=== PATIENT | male | born 1945 | race Caucasian/White ===

== ENCOUNTER → 2020-04-08 09:11 | Outpatient (BNVA) | payer MEDICARE, OTHER, SELFPAY | PROVIDERS: Family Provider Family Medicine; PCP Family Medicine; Visit Provider Family Medicine | DX: I10 Essential (primary) hypertension (principal); R35.1 Nocturia; H61.92 Disorder of left external ear, unspecified | CPT/HCPCS: 80053; 80061; 82044; 83721; 84153; 85025 ==

== ENCOUNTER → 2020-04-09 12:56 | Outpatient (BNVA) | payer MEDICARE, OTHER, SELFPAY | PROVIDERS: Family Provider Family Medicine; PCP Family Medicine; Visit Provider Family Medicine | DX: I10 Essential (primary) hypertension (principal); R35.1 Nocturia; H61.92 Disorder of left external ear, unspecified; K21.9 Gastro-esophageal reflux disease without esophagitis; R73.09 Other abnormal glucose | CPT/HCPCS: 83036 ==

== ENCOUNTER → 2020-06-03 15:48 | Outpatient (BNVA) | payer MEDICARE, OTHER, SELFPAY | PROVIDERS: Family Provider Family Medicine; PCP Family Medicine; Visit Provider Nurse Practitioner | DX: J02.9 Acute pharyngitis, unspecified (principal); J01.90 Acute sinusitis, unspecified | CPT/HCPCS: 87071; 87880 ==

== ENCOUNTER 2020-09-13 17:55 | Emergency (ER) | payer MEDICARE, OTHER, SELFPAY ==
[2020-09-13 17:57] VITALS: BP 190/93; PULSE 94; RESP 20; TEMP 36.7; O2SAT 97; BMI 40.8
--- NOTE | 2020-09-13 17:57 | XRR_ITS ---
PROCEDURE INFORMATION: Exam: XR Chest, 1 View Exam date and time: 09/13/2020 5:58 PM Age: 75 years old Clinical indication: Chest pain; Type not specified; Additional info: Cp TECHNIQUE: Imaging protocol: XR of the chest Views: 1 view. COMPARISON: CR Chest 1 [place] [id number] 04/27/2019 7:15 PM FINDINGS: Lungs: Unremarkable. No consolidation. Pleural space: Unremarkable. No pleural effusion. No pneumothorax. Heart/Mediastinum: Unremarkable. No cardiomegaly. Bones/joints: Unremarkable. XR/XR chest 1V portable [id number] IMPRESSION: No acute findings.
--- NOTE | 2020-09-13 17:57 | ECG_ITS ---
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: : 1945 Requested By: Misti Malin Order Number: [id number] Reading MD: DAVID FAYE Measurements Intervals [place] Rate: 100 P: 65 CO: 205 QRS: 21 QRSD: 100 T: 50 QT: 357 QTc: 460 Interpretive Statements SINUS TACHYCARDIA WITH OCCASIONAL VENTRICULAR PREMATURE COMPLEXES ABNORMAL RHYTHM ECG Compared to ECG 04/27/2019 22:22:53 Sinus rhythm no longer present Electronically Signed On 09-13-2020 20:13:37 JOURNALISTS AND OTHER WRITERS by DAVID FAYE [email or web address] medical [facility] shawWigix/store/NU/[id number] f
--- NOTE | 2020-09-13 18:16 | ED_ITS ---
HPI - Chest Pain General: Chief Complaint: Chest Pain Stated Complaint: chest pain/heart problems Time Seen by Provider: 09/13/20 17:59 History of Present Illness: HPI narrative: 75-year-old gentleman here with palpitations, and some chest discomfort. He notes that he woke up with this this morning. His chest discomfort is gone, but he notes that it still hard to breathe because his heart seems to be skipping beats. He has had this problem before. He has a history of aortic regurgitation but no history of coronary disease. He has not been ill, not running a fever, no cough, no increased swelling. MD complaint: chest discomfort Pertinent past history: other Onset (ago): hour(s) (12) Timing of current episode: episodic Prior episodes: Yes Onset: during rest Pain location: substernal Pain radiation: none Severity: moderate Quality: tightness and heaviness Relieving factors: nothing Exacerbating factors: nothing Associated symptoms: Reports dyspnea and palpitations; Deny abdominal pain, diaphoresis, fever(s), leg edema, nausea or vomiting Treatment prior to arrival: none Review of Systems Const: Denies: fever(s) or diaphoresis Eyes: Denies: change in vision ENMT: Denies: odynophagia, swelling of lips/tongue or sinus pain Card: Reports: palpitations Resp: Reports: dyspnea GI: Denies: abdominal pain, nausea or vomiting : Denies: difficulty urinating or hematuria Musc: Denies: neck pain or joint warmth Skin/Breast: Denies: rash or erythema Neuro: Denies: headache(s), dizziness or vertigo Psych: Denies: anxiety PFSH ED PFSH: Medical History (Updated 09/13/20 @ 19:48 by Pramod Landry DO) Benign essential hypertension GERD (gastroesophageal reflux disease) Grade I diastolic dysfunction Prediabetes Surgical History H/O hernia repair History of circumcision History of rhinoplasty Family History Other CAD (coronary artery disease) Hypertension Social History Smoking and tobacco status: never smoked Alcohol intake: never Physical Exam Const: GENERAL APPEARANCE: well developed ORIENTATION/CONSCIOUSNESS: Yes oriented to person, Yes oriented to place and Yes oriented to time HENMT: COMMON NORMALS: normocephalic, external ears normal and Normal external nose present HEAD & SCALP: normocephalic FACE & SINUS: normal facial exam NOSE: Normal external nose present and No nasal discharge present EXTERNAL EAR: Yes external ears normal Eye: COMMON NORMALS: Equal, round and reactive pupils present, EOMs intact bilaterally and conjunctivae normal EYELID: eyelids normal CONJUNCTIVA: Yes conjunctivae normal PUPIL: Yes Equal, round and reactive pupils present Neck/C-Spine: GENERAL: No tracheal deviation Chest: COMMONS NORMALS: normal inspection of the chest CHEST: No tenderness Resp: COMMON NORMALS: clear to auscultation bilaterally EFFORT & INSPECTION: No tachypneic, No respiratory distress, No retractions, No uses accessory muscles and No tracheal deviation AUSCULTATION: clear to auscultation bilaterally, no rhonchi, no wheezes and lung sounds not diminished Cardio: COMMON NORMALS: regular rate and regular rhythm RATE: regular rate RHYTHM: regular rhythm HEART SOUNDS: no murmurs PERIPHERAL PULSES: radial pulses present GI: INSPECTION: No abdominal distension AUSCULTATION: No Hyperactive bowel sounds present and No Hypoactive bowel sounds present PALPATION: No Guarding due to palpation present (GI) and No Rigid due to palpation PERCUSSION: no dullness to percussion and no tympanic to percussion Neuro: SENSORIUM/ORIENTATION: Yes oriented to person, Yes oriented to place and Yes oriented to time Psych: COMMON NORMALS: mental status grossly normal Skin: COMMON NORMALS: no rashes or lesions noted GENERAL SKIN EXAM: no rashes or lesions noted Course Vital Signs: Vital signs: Vital Signs Temperature 98.1 F 09/13/20 17:57 Pulse Rate 63 09/13/20 20:59 Respiratory Rate 16 09/13/20 20:59 Blood Pressure 150/76 09/13/20 20:59 Pulse Oximetry 97 09/13/20 20:59 MDM - Chest Pain MDM Narrative: Medical decision making narrative: There were some frequent PVCs on the monitor, likely symptomatic. He was hypertensive on arrival as well. Blood pressure much better now, 146/86. He was given 5 mg of metoprolol, with lowering of his rate into the mid 60s and very few PVCs presently. The patient notes he can breathe better. His EKG shows a sinus rhythm with a normal axis and no acute ST changes. There were a couple of PVCs present. His potassium is 3.3, magnesium is 1.5. These will be repleted, as there are potential cause of the PVCs. His other lab work is essentially benign. His troponin is negative with improvement in his symptoms he will be allowed home Lab Data: Labs: Lab Results 09/13/20 09/13/20 09/13/20 Range/Units 18:42 18:42 18:42 WBC 9.4 (4.0-10.0) 10^3/ uL RBC 4.54 (4.1-5.3) 10^6/u L Hgb 14.1 (11.7-16.6) g/dL Hct 43.2 (42.0-52.0) % MCV 95.2 H (80-94) fL MCH 31.1 (28.0-34.0) pg MCHC 32.6 (30.0-36.0) g/dL RDW 12.8 (12.1-15.1) % Plt Count 226 (130-400) 10^3/c mm MPV 10.1 (7.4-10.4) fL Neut % (Auto) 53.8 % Lymph % (Auto) 37.0 % [place] % (Auto) 7.4 % Eos % (Auto) 0.7 % Baso % (Auto) 0.7 % Neut # (Auto) 5.03 (1.8-7.7) 10^3/u L Lymph # (Auto) 3.5 (0.8-4.8) 10^3/u L [place] # (Auto) 0.7 (0.2-0.9) 10^3/u L Eos # (Auto) 0.1 (0.0-0.8) 10^3/u L Baso # (Auto) 0.1 (0.0-0.1) 10^3/u L Nucleated RBC % (a uto) 0 % Nucleated RBCs # 0.0 /100WBC Sodium 141 (136-145) mmol/L Potassium 3.3 L (3.5-5.1) mmol/L Chloride 105 (98-107) mmol/L Carbon Dioxide 25 (22-29) mmol/L Anion Gap 14.3 (5-19) BUN 15 (8-23) mg/dL Creatinine 0.8 (0.7-1.2) mg/dL GFR Calculation Not Reportable Glucose 114 (65-115) mg/dL Calculated Osmolal ity 294 (285-295) mOsm/k g Calcium 9.4 (8.5-10.5) mg/dL Magnesium 1.5 L (1.7-2.3) mg/dL Total Bilirubin 0.3 (0.15-1.2) mg/dL AST 26 (0-40) U/L ALT 38 (0-41) U/L Alkaline Phosphata se 62 (40-130) IU/L Troponin T Baselin e 11 (0-15) ng/L NT-Pro-B Natriuret Pep 136 H (0-125) pg/mL Total Protein 6.6 (6.6-8.7) g/dL Albumin 4.0 (3.5-5.2) g/dL Globulin 2.6 (1.3-4.6) g/dL Discharge Plan Discharge Patient Disposition: Home Clinical Impression: Hypokalemia, Hypomagnesemia Chest pain Qualifiers: Chest pain type: unspecified Qualified Code(s): R07.9 - Chest pain, unspecified Condition: Stable Prescriptions: No Action aspirin 325 mg tablet 325 mg PO DAILY RF: 0 chlorthalidone 50 mg tablet 100 mg PO DAILY Qty: 90 RF: 1 lisinopril 40 mg tablet 40 mg PO BID Qty: 180 RF: 1 atenolol 50 mg tablet 50 mg PO DAILY Qty: 90 RF: 1 potassium chloride 20 mEq tablet extended release 20 meq PO DAILY Qty: 90 RF: 1 pantoprazole [Protonix] 40 mg tablet,delayed release (DR/EC) 40 mg PO DAILY Qty: 90 RF: 1 Discharge Orders: Discharge ED (Routine); Ordered 09/13/20 Ordered By: Pramod Landry Referrals: Lorrie Amaya DO [Primary Care Provider] - 4-7 days Discharge Diet: Advance as tolerated Discharge Activity: Increase activity as tolerated Patient Instructions: Chest Pain (ED), Palpitations (ED), Hypokalemia (ED), Hypomagnesemia (ED) Activity Restrictions/Additional Instructions: Return to the emergency department for continued chest discomfort or palpitations, syncope or passing out, worsening trouble breathing, other concerning symptoms. You should have your blood work rechecked in a few days time to ensure those levels are staying appropriate. Coding Level of Care Code ED Slag Skimmer for Chg Fwd Exam Comprehensive
[2020-09-13 18:31] VITALS: BP 163/89; PULSE 81; RESP 17; O2SAT 95
[2020-09-13] MEDS: metoprolol tartrate 1 mg/1 mL SDV 5 mL 5 MG IV (18:41)
[2020-09-13 18:57] LABS: Basophils # 0.1 10^3/uL (0.0-0.1); Basophils % 0.7 %; Eosinophils # 0.1 10^3/uL (0.0-0.8); Eosinophils % 0.7 %; Hematocrit 43.2 % (42.0-52.0); Hemoglobin 14.1 g/dL (11.7-16.6); Lymphocytes # 3.5 10^3/uL (0.8-4.8); Mean Corpuscular HGB Conc 32.6 g/dL (30.0-36.0); Mean Corpuscular Hemoglobin 31.1 pg (28.0-34.0); Mean Corpuscular Volume 95.2 fL (80-94); Mean Platelet Volume 10.1 fL (7.4-10.4); Monocytes # 0.7 10^3/uL (0.2-0.9); Monocytes % 7.4 %; Neutrophils # 5.03 10^3/uL (1.8-7.7); Neutrophils % 53.8 %; Nucleated Red Blood Cells % 0 %; Platelet Count 226 10^3/cmm (130-400); Red Blood Count 4.54 10^6/uL (4.1-5.3); Red Cell Distribution Width 12.8 % (12.1-15.1); White Blood Count 9.4 10^3/uL (4.0-10.0)
[2020-09-13 19:10] VITALS: BP 151/76; PULSE 68; RESP 17; O2SAT 95
[2020-09-13 19:24] LABS: Troponin(5th) Baseline 11 ng/L (0-15)
[2020-09-13 19:33] LABS: Alanine Aminotransferase 38 U/L (0-41); Alkaline Phosphatase 62 IU/L (40-130); Anion Gap 14.3 (5-19); Aspartate Amino Transferase 26 U/L (0-40); Blood Urea Nitrogen 15 mg/dL (8-23); Calcium 9.4 mg/dL (8.5-10.5); Carbon Dioxide 25 mmol/L (22-29); Chloride 105 mmol/L (98-107); Globulin 2.6 g/dL (1.3-4.6); Glucose 114 mg/dL (65-115); Magnesium 1.5 mg/dL (1.7-2.3); NT Pro B Type Natriuretic Pept 136 pg/mL (0-125); Osmolality Calculated 294 mOsm/kg (285-295); Potassium 3.3 mmol/L (3.5-5.1); Sodium 141 mmol/L (136-145); Total Bilirubin 0.3 mg/dL (0.15-1.2); Total Protein 6.6 g/dL (6.6-8.7)
[2020-09-13] MEDS: magnesium sulfate premix 2 GM/50 ML PIGGYBACK IV (19:48)
[2020-09-13] MEDS: potassium chloride ER 20 mEq Tablet 40 MEQ PO (19:50)
[2020-09-13 19:51] VITALS: BP 157/80; PULSE 80; RESP 17; O2SAT 95
[2020-09-13 20:59] VITALS: BP 150/76; PULSE 63; RESP 16; O2SAT 97
== END 2020-09-13 20:59 | disposition home or self-care (01) ==
PROVIDERS: Emergency Medicine; Emergency Provider Emergency Medicine; PCP Family Medicine
DX: R07.9 Chest pain, unspecified (principal); E87.6 Hypokalemia; E83.42 Hypomagnesemia; Z79.82 Long term (current) use of aspirin
CPT/HCPCS: 12345; 71045; 80053; 83735; 83880; 84484; 85025; 93005; 96365; 96375; 99283; 99284; J3475; J3490

== ENCOUNTER → 2020-11-27 12:59 | Outpatient (BNVA) | payer MEDICARE, OTHER, SELFPAY | PROVIDERS: PCP Family Medicine; Visit Provider Family Medicine | DX: I10 Essential (primary) hypertension (principal); Z68.41 Body mass index [BMI] 40.0-44.9, adult | CPT/HCPCS: 80048 ==

== ENCOUNTER 2021-04-29 06:45 | Outpatient (CLI) | payer MEDICARE, OTHER, SELFPAY ==
--- NOTE | 2021-04-29 07:15 | USCV_ITS ---
Teddy aGyle Age: 75 Gender: M : 1945 Exam Date: 04/29/2021 07:40 Ordering Phys: Lorrie Amaya DO Technologist: Berto Burnham Exam Location: [facility] [place] Indication: diastolic dysfunction BP: 160 / 84 HR: 61 Rhythm: Sinus Technical Quality: Adequate MEASUREMENTS (Male / Female) Normal Values 2D ECHO LV Diastolic Diameter PLAX 3.2 cm 4.2 - 5.9 / 3.9 - 5.3 cm LV Systolic Diameter PLAX 2.1 cm IVS Diastolic Thickness 1.5 cm 0.6 - 1.0 / 0.6 - 0.9 cm IVS Systolic Thickness 1.7 cm LVPW Diastolic Thickness 2.1 cm 0.6 - 1.0 / 0.6 - 0.9 cm LVPW Systolic Thickness 2.6 cm LVOT Diameter 2.1 cm LV Ejection Fraction 2D Teich 64.0 % LV Ejection Fraction MOD 2C 57.3 % LV Ejection Fraction 2C AL 59.9 % LA Diameter 4.0 cm LA Width 3.9 cm LA Height 5.4 cm RA Width 3.0 cm RA Height 4.6 cm Aorta at Sinotubular Diameter 2.9 cm M-MODE LV Diastolic Diameter MM 4.1 cm 4.2 - 5.9 / 3.9 - 5.3 cm LV Systolic Diameter MM 2.9 cm LV Ejection Fraction MM Teich 57.3 % IVS Diastolic Thickness MM 2.0 cm 0.6 - 1.0 / 0.6 - 0.9 cm IVS Systolic Thickness MM 2.0 cm LVPW Diastolic Thickness MM 1.4 cm 0.6 - 1.0 / 0.6 - 0.9 cm LVPW Systolic Thickness MM 1.9 cm Aortic Annulus Diameter 2.9 cm LA Ao Ratio MM 1.6 MV E Point Septal Separation 0.9 cm DOPPLER AV Peak Velocity 128.0 cm/s LVOT Peak Velocity 129.0 cm/s AV Area Cont Eq vti 3.1 cm squared AV Area Cont Eq pk 3.6 cm squared MV Peak Velocity 601.0 cm/s MV Area PHT 3.6 cm squared Mitral E to A Ratio 1.1 MV E' Velocity 37.5 cm/s Mitral E to MV E' Ratio 7.9 Mitral E to LV E' Lateral Ratio 7.6 Mitral E to LV E' Septal Ratio 8.4 TR Peak Velocity 222.7 cm/s TR Peak Gradient 19.8 mmHg Right Atrial Pressure 3.0 mmHg Pulmonary Artery Systolic Pressu 22.8 mmHg RV Acceleration Time 0.1 s RV Ejection Time 0.3 s RV AcT/ET 0.4 FINDINGS Left Ventricle Normal left ventricular cavity size. Normal left ventricular systolic function. Left ventricular ejection fraction is estimated at 60 %. No regional wall motion abnormalities. Grade I/IV diastolic dysfunction (abnormal relaxation filling pattern), normal to mildly elevated filling pressures. Right Ventricle The right ventricle is normal in size and function. Right Atrium The right atrium is normal in size. Left Atrium The left atrium is normal in size. Mitral Valve Moderately thickened mitral valve. No mitral valve stenosis. Mild-moderate mitral valve regurgitation. Aortic Valve Aortic valve sclerosis without stenosis or regurgitation. Tricuspid Valve Structurally normal tricuspid valve without significant stenosis , no doppler analysis was performed across the tricuspid valve therefore cannot assess regurgitation. Pulmonic Valve Structurally normal pulmonic valve without significant stenosis. There is no pulmonic regurgitation. Pericardium Normal pericardium without effusion. Aorta Normal ascending aorta dimension. CONCLUSIONS 1-Normal left ventricular cavity size. Normal left ventricular systolic function. Left ventricular ejection fraction is estimated at 60 %. No regional wall motion abnormalities. Grade I/IV diastolic dysfunction (abnormal relaxation filling pattern), normal to mildly elevated filling pressures. 2-Moderately thickened mitral valve. No mitral valve stenosis. Mild-moderate mitral valve regurgitation. 3-There is no pericardial effusion. 4-Pulmonary artery systolic pressure is within normal limits. 5-Right atrial pressure is around 5 mm of mercury. 6-No significant change since the prior echocardiogram study of 09/20/2019. Génesis Marinelli MD (Electronically Signed) Final Date: 01 May 2021 15:32 S
== END 2021-04-29 06:46 | disposition home or self-care (01) ==
PROVIDERS: PCP Family Medicine; Visit Provider Family Medicine
DX: I51.9 Heart disease, unspecified (principal)
CPT/HCPCS: 93306

== ENCOUNTER → 2021-10-14 15:48 | Outpatient (BNVA) | payer MEDICARE, OTHER, SELFPAY | PROVIDERS: PCP Family Medicine; Visit Provider Family Medicine | DX: R73.9 Hyperglycemia, unspecified (principal); G62.9 Polyneuropathy, unspecified | CPT/HCPCS: 80053; 83036 ==

== ENCOUNTER 2021-10-17 00:06 | Emergency (ER) | payer MEDICARE, OTHER, SELFPAY ==
[2021-10-17 00:29] VITALS: BP 191/100; PULSE 70; RESP 18; TEMP 36.6; O2SAT 97; BMI 40.1
[2021-10-17 00:43] VITALS: PULSE 67; RESP 18; O2SAT 97
--- NOTE | 2021-10-17 00:44 | PC.NURSE ---
patient arrival with c/o heart rate every where 30-45 min after taking the first dose of gabapentin to help his legs rest while he is sleeping. denies swelling and hives. reports intermittent SOB. speech clear, sentences complete. heart monitor and SPO2 in place.
--- NOTE | 2021-10-17 00:45 | W.ED.ALLEREA ---
HPI - Allergic Reaction General: Chief complaint: Allergic Reaction Stated complaint: took new medication, possible reaction Time Seen by Provider: 10/17/21 00:43 History of Present Illness: HPI narrative: 76-year-old male patient comes in today for complaints of bradycardia and dizziness. Patient reports he had taken some gabapentin which he just picked up today and was taking it for some leg cramps at night. This was his first dose. An hour after he had taken the medication he felt really dizzy and his pulse rate was low in the upper 40s. Patient reports improvement of symptoms since arriving to the ER. Patient is alert and oriented. Patient denies any chest pain or difficulty breathing. Associated symptoms: Reports dizziness Review of Systems Card: Reports: palpitations Neuro: Reports: dizziness [facility] ED PFSH: Medical History Benign essential hypertension GERD (gastroesophageal reflux disease) Grade I diastolic dysfunction Hypertension Mitral valve regurgitation Prediabetes Surgical History H/O hernia repair History of circumcision History of rhinoplasty Family History Other CAD (coronary artery disease) Hypertension Social History Smoking and tobacco status: never smoked Alcohol intake: never History of recent travel: No Physical Exam Const: GENERAL APPEARANCE: cooperative and well kempt HENMT: COMMON NORMALS: atraumatic HEAD & SCALP: atraumatic Eye: COMMON NORMALS: Equal, round and reactive pupils present and EOMs intact bilaterally PUPIL: Yes Equal, round and reactive pupils present Neck/C-Spine: COMMON NORMALS: full ROM Resp: COMMON NORMALS: normal respiratory effort and clear to auscultation bilaterally AUSCULTATION: clear to auscultation bilaterally Cardio: COMMON NORMALS: regular rate RATE: regular rate RHYTHM: abnormal rhythm with ectopic beats Extremity: COMMON NORMALS: no clubbing, cyanosis or edema and no pedal edema Psych: APPEARANCE: Yes well kempt Skin: COMMON NORMALS: no rashes or lesions noted GENERAL SKIN EXAM: no rashes or lesions noted Course Vital Signs: Vital signs: Vital Signs Temperature 97.9 F 10/17/21 00:29 Pulse Rate 67 10/17/21 00:43 Respiratory Rate 18 10/17/21 00:43 Blood Pressure 191/100 10/17/21 00:29 Pulse Oximetry 97 10/17/21 00:43 MDM - Allergic Reaction MDM Narrative: Medical decision making narrative: 76-year-old male patient took a gabapentin 300 mg capsule at about 10:00 this evening. 11:00 he felt his heart rate was running slow and he felt really dizzy. Patient had never taken medication before. Patient feels better since arriving to the ER. On exam patient does have an occasional ectopic beat on auscultation. Review of the EKG showed a sinus rhythm with occasional PACs and PVCs which is similar to prior exam done in September 2020. Patient's rate is 72 bpm. Lungs are clear to auscultation. No edema is noted in the lower extremities. Patient is alert and oriented. Blood pressure on arrival was 190 systolic but in the room it repeated at 120/77. Patient denies any headache or other weakness. Differential diagnosis includes but not limited to electrolyte imbalance, PVCs, adverse drug effect. The symptoms that patient does report are adverse effects of gabapentin. I recommended patient stop the gabapentin until he can follow-up with his primary care provider. Patient can try Tylenol for pain. Patient was recommended to monitor for chest pain or other new symptoms that can be a sign of other illness. I reviewed patient's labs from yesterday and they showed no abnormality in his potassium or sodium. Patient reported understanding of recommendations of treatment and follow-up. Discharge Plan Discharge Patient Disposition: Home Clinical Impression: Adverse reaction to drug Qualifiers: Encounter type: initial encounter Qualified Code(s): T50.905A - Adverse effect of unspecified drugs, medicaments and biological substances, initial encounter Condition: Stable Prescriptions: No Action valsartan-hydrochlorothiazide 320-25 mg tablet 1 tab PO DAILY Qty: 90 RF: 3 magnesium oxide 400 mg magnesium capsule 400 mg PO DAILY Qty: 90 RF: 3 potassium chloride 20 mEq tablet extended release 20 meq PO DAILY Qty: 90 RF: 3 citalopram [Celexa] 10 mg tablet 10 mg PO DAILY Qty: 30 RF: 0 aspirin 325 mg tablet 325 mg PO DAILY RF: 0 furosemide 40 mg tablet 40 mg PO BID Qty: 90 RF: 3 tadalafil [Cialis] 10 mg tablet 10 mg PO DAILY PRN (Reason: sexual activity) Qty: 10 RF: 0 Bystolic 10 mg tablet See Rx Instructions .ROUTE .COMPLEX Qty: 90 RF: 0 pantoprazole 40 mg tablet,delayed release (DR/EC) See Rx Instructions .ROUTE .COMPLEX Qty: 90 RF: 0 gabapentin 300 mg capsule 300 mg PO .qhs Qty: 30 RF: 0 Discharge Orders: Discharge ED (Routine); Ordered 10/17/21 Ordered By: Spencer Greer Referrals: Lorrie Amaya DO [Primary Care Provider] - Discharge Diet: Usual diet Discharge Activity: Increase activity as tolerated Patient Instructions: Adverse Drug Reaction (ED) Activity Restrictions/Additional Instructions: Home and rest. Monitor for chest pain. Follow-up with primary care as needed. Return to the ER for new concerns. Coding Level of Care Code ED Insurance Writer for Pee Mendez
--- NOTE | 2021-10-17 00:50 | ECG_ITS ---
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: : 1945 Requested By: Spencer Washington Order Number: [id number] Reading MD: DAVID FAYE Measurements Intervals [place] Rate: 72 P: 46 [place]: 178 QRS: 19 QRSD: 98 T: 55 QT: 385 QTc: 424 Interpretive Statements SINUS RHYTHM WITH OCCASIONAL VENTRICULAR PREMATURE COMPLEXES WITH FREQUENT SUPRAVENTRICULAR PREMATURE COMPLEXES ABNORMAL RHYTHM ECG Compared to ECG 09/13/2020 18:03:24 Sinus tachycardia no longer present Electronically Signed On 10-17-2021 17:47:34 CLIENT PORTFOLIO MANAGER by DAVID FAYE [id number]
[2021-10-17 01:03] VITALS: PULSE 77; RESP 17; O2SAT 99
== END 2021-10-17 01:04 | disposition home or self-care (01) ==
PROVIDERS: Emergency Provider Nurse Practitioner Family; PCP Family Medicine
DX: T88.7XXA Unspecified adverse effect of drug or medicament, initial encounter (principal); T42.6X5A Adverse effect of other antiepileptic and sedative-hypnotic drugs, initial encounter; Z79.82 Long term (current) use of aspirin; I10 Essential (primary) hypertension
CPT/HCPCS: 93005; 99283

== ENCOUNTER → 2022-04-20 13:54 | Outpatient (BNVA) | payer MEDICARE, OTHER, SELFPAY | PROVIDERS: PCP Family Medicine; Visit Provider Nurse Practitioner Family | DX: I11.9 Hypertensive heart disease without heart failure (principal); I25.10 Atherosclerotic heart disease of native coronary artery without angina pectoris | CPT/HCPCS: 99213; 99214 ==

== ENCOUNTER 2022-09-28 14:16 | Outpatient (CLI) | payer MEDICARE, OTHER, SELFPAY ==
--- NOTE | 2022-09-28 14:30 | USCV_ITS ---
Teddy Gayle Age: 77 Gender: M : 1945 Exam Date: 09/28/2022 14:27 Ordering Phys: Lorrie Amaya DO Technologist: Nata Coleman Exam Location: [facility] [place] Indication: mvr BP: 160 / 85 HR: 67 Rhythm: Sinus Technical Quality: Very technically difficult study MEASUREMENTS (Male / Female) Normal Values 2D ECHO LV Diastolic Diameter PLAX 5.2 cm 4.2 - 5.9 / 3.9 - 5.3 cm LV Systolic Diameter PLAX 3.9 cm IVS Diastolic Thickness 1.2 cm 0.6 - 1.0 / 0.6 - 0.9 cm IVS Systolic Thickness 1.6 cm LVPW Diastolic Thickness 1.3 cm 0.6 - 1.0 / 0.6 - 0.9 cm LVPW Systolic Thickness 1.7 cm LVOT Diameter 2.1 cm LV Ejection Fraction 2D Teich 47.2 % LV Ejection Fraction MOD 2C 55.4 % LV Ejection Fraction 2C AL 54.8 % LA Diameter 4.4 cm LA Width 3.0 cm LA Height 5.4 cm RA Width 4.1 cm RA Height 4.0 cm Aorta at Sinotubular Diameter 3.0 cm IVC Diameter 1.6 cm M-MODE Aortic Annulus Diameter 3.7 cm LA Ao Ratio MM 1.3 MV E Point Septal Separation 1.1 cm DOPPLER AV Peak Velocity 119.0 cm/s LVOT Peak Velocity 84.0 cm/s AV Area Cont Eq vti 2.6 cm squared AV Area Cont Eq pk 2.4 cm squared MV Area PHT 2.1 cm squared Mitral E to A Ratio 0.6 MV E' Velocity 27.0 cm/s Mitral E to MV E' Ratio 9.6 Mitral E to LV E' Lateral Ratio 9.4 Mitral E to LV E' Septal Ratio 10.0 TR Peak Velocity 219.1 cm/s TR Peak Gradient 19.2 mmHg TR Mean Velocity 210.5 cm/s TR Mean Gradient 19.0 mmHg TR Velocity Time Integral 78.9 cm TV Peak E Velocity 49.0 cm/s Right Atrial Pressure 3.0 mmHg Pulmonary Artery Systolic Pressu 22.2 mmHg RV Acceleration Time 0.2 s RV Ejection Time 0.4 s RV AcT/ET 0.4 FINDINGS Left Ventricle Normal left ventricular size, systolic function and wall thickness, with no diagnostic regional wall motion abnormalities. Left ventricular ejection fraction is estimated at 55-60 %. Grade I diastolic dysfunction (abnormal relaxation filling pattern), normal to mildly elevated filling pressures. Right Ventricle Normal right ventricular size and systolic function. RVSP could not be calculated due to incomplete tricuspid regurgitation velocity profile. Right Atrium Normal right atrial size. Left Atrium Normal left atrial size. Mitral Valve Structurally normal mitral valve. No mitral valve stenosis. No mitral valve regurgitation. Aortic Valve Structurally normal trileaflet aortic valve. No aortic valve stenosis. No aortic valve regurgitation. Tricuspid Valve Structurally normal tricuspid valve. No tricuspid valve stenosis. Trace tricuspid valve regurgitation. Pulmonic Valve Pulmonic valve not well visualized. Pericardium No pericardial effusion. Aorta Normal size aortic root and proximal ascending aorta. IVC Normal sized inferior vena cava. CONCLUSIONS 1. Normal left ventricular size, systolic function and wall thickness, with no diagnostic regional wall motion abnormalities. Left ventricular ejection fraction is estimated at 55-60 %. Grade I diastolic dysfunction (abnormal relaxation filling pattern), normal to mildly elevated filling pressures. 2. Normal right ventricular size and systolic function. 3. No significant valvular abnormality. 4. No prior similar studies to compare. Shelby Marte MD (Electronically Signed) Final Date: 01 October 2022 15:57 S
== END 2022-09-28 14:17 | disposition home or self-care (01) ==
LOC: RAD 14:17
PROVIDERS: PCP Family Medicine; Visit Provider Family Medicine
DX: I34.0 Nonrheumatic mitral (valve) insufficiency (principal)
CPT/HCPCS: 93306

== ENCOUNTER → 2022-11-15 12:53 | Outpatient (BNVA) | payer MEDICARE, OTHER, SELFPAY | PROVIDERS: PCP Family Medicine; Visit Provider Internal Medicine Cardiovascular Disease | DX: I34.0 Nonrheumatic mitral (valve) insufficiency (principal); E78.1 Pure hyperglyceridemia; R73.03 Prediabetes; I11.9 Hypertensive heart disease without heart failure; E66.9 Obesity, unspecified; Z68.41 Body mass index [BMI] 40.0-44.9, adult | CPT/HCPCS: 99213 ==

== ENCOUNTER → 2023-06-13 13:54 | Outpatient (BNVA) | payer MEDICARE, OTHER, SELFPAY | PROVIDERS: PCP Family Medicine; Visit Provider Internal Medicine Cardiovascular Disease | DX: I11.9 Hypertensive heart disease without heart failure (principal) | CPT/HCPCS: 99214 ==

== ENCOUNTER → 2023-07-17 11:11 | Outpatient (BNVA) | payer MEDICARE, OTHER, SELFPAY | PROVIDERS: PCP Family Medicine; Visit Provider Nurse Practitioner Family | DX: L57.0 Actinic keratosis (principal); Z85.828 Personal history of other malignant neoplasm of skin; L82.1 Other seborrheic keratosis; D22.5 Melanocytic nevi of trunk; L57.8 Other skin changes due to chronic exposure to nonionizing radiation; L81.4 Other melanin hyperpigmentation | CPT/HCPCS: 17000; 99213 ==

== ENCOUNTER → 2023-08-07 13:36 | Outpatient (BNVA) | payer MEDICARE, OTHER, SELFPAY | PROVIDERS: PCP Family Medicine; Visit Provider Family Medicine | DX: I10 Essential (primary) hypertension (principal); R73.03 Prediabetes; R35.1 Nocturia; Z23 Encounter for immunization | CPT/HCPCS: 80053; 80061; 82043; 83036; 83721; 84153; 85025 ==

== ENCOUNTER → 2023-09-12 13:01 | Outpatient (BNVA) | payer MEDICARE, OTHER, SELFPAY | PROVIDERS: PCP Family Medicine; Visit Provider Family Medicine | DX: E87.6 Hypokalemia (principal); E78.1 Pure hyperglyceridemia | CPT/HCPCS: 80048 ==

== ENCOUNTER → 2023-12-14 11:51 | Outpatient (BNVA) | payer MEDICARE, OTHER, SELFPAY | PROVIDERS: PCP Family Medicine; Visit Provider Family Medicine | DX: E11.9 Type 2 diabetes mellitus without complications (principal) | CPT/HCPCS: 80053; 83036 ==

== ENCOUNTER 2023-12-22 09:22 | Emergency (ER) | payer MEDICARE, OTHER, SELFPAY ==
[2023-12-22 10:23] VITALS: BP 130/78; PULSE 96; RESP 18; TEMP 36.8; O2SAT 96; BMI 39.0
[2023-12-22 11:05] LABS: Basophils # 0.1 10^3/uL (0.0-0.1); Basophils % 0.6 %; Eosinophils # 0.1 10^3/uL (0.0-0.8); Lymphocytes # 2.6 10^3/uL (0.8-4.8); Lymphocytes % 29.4 %; Mean Corpuscular HGB Conc 33.5 g/dL (30-55); Mean Corpuscular Hemoglobin 32.7 pg (27-33); Mean Corpuscular Volume 97.5 fl (82-101); Mean Platelet Volume 9.6 fL (7.4-10.4); Monocytes # 0.7 10^3/uL (0.2-0.9); Monocytes % 8.4 %; Neutrophils # 5.28 10^3/uL (1.8-7.7); Neutrophils % 60.1 %; Nucleated Red Blood Cells % 0 %; Platelet Count 224 10^3/cmm (157-399); Red Blood Count 4.41 10^6/uL (3.85-5.65); Red Cell Distribution Width 13.2 % (12.1-15.1); White Blood Count 8.78 10^3/uL (3.29-11.43)
[2023-12-22 11:28] LABS: Alanine Aminotransferase 69 U/L (0-41); Alkaline Phosphatase 56 U/L (40-130); Anion Gap 14.6 (5-19); Aspartate Amino Transferase 44 U/L (0-40); Blood Urea Nitrogen 19 mg/dL (8-23); Calcium 7.6 mg/dL (8.5-10.5); Carbon Dioxide 20 mmol/L (22-29); Chloride 106 mmol/L (98-107); Creatinine Clr Calc Pharmacy 69.0006; Globulin 3.6 g/dL (1.3-4.6); Glucose 135 mg/dL (65-115); Lipase 68 U/L (13-60); Osmolality Calculated 288 mOsm/kg (285-295); Potassium 3.6 mmol/L (3.5-5.1); Sodium 137 mmol/L (136-145); Total Bilirubin 0.5 mg/dL (0.15-1.2); Total Protein 7.6 g/dL (6.6-8.7)
[2023-12-22 11:38] LABS: Urine Appearance Clear (CLEAR); Urine Color Yellow (Yellow); pH Urine 5 (5-7)
[2023-12-22 11:39] LABS: Add Urine Microscopic? YES; Bilirubin Urine Neg (Negative); Blood Urine Neg (Negative); Glucose Urine UA Norm (Normal); Ketones Urine 1+ (Negative); Leukocyte Esterase Urine Negative (Negative); Nitrate Urine Negative (Negative); Protein Urine Trace (Negative); Urobilinogen Urine Neg (Negative)
[2023-12-22 11:40] LABS: Bacteria Urine 1+ /hpf; Mucus Urine 1+ /hpf; RBC Urine RARE /hpf (0-2); Squamous Epithelial Cell Urine 0-4 /hpf (0-5); WBC Urine 0-4 /hpf (0-5)
[2023-12-22 11:41] LABS: Add Urine Culture? No; Hyaline Casts Urine 40-55 /lpf
[2023-12-22 11:41] LABS: Magnesium 1.8 mg/dL (1.7-2.3)
[2023-12-22] MEDS: ondansetron 2 mg/ML SDV 2 mL 4 MG IVP (12:00)
[2023-12-22] MEDS: sodium chloride 0.9% 1,000 ML 999 ML IV (12:00)
--- NOTE | 2023-12-22 12:50 | W.ED.NAVMDI ---
HPI - Nausea/Vomiting/Diarrhea General: Chief complaint: Nausea/Vomiting/Diarrhea Stated complaint: N/V/D , fever Time Seen by Provider: 12/22/23 11:03 History of Present Illness: Patient presents to the ER with complaints of upper respiratory/cold/sinus infection for about the last 3 to 4 days. Patient says gotten worse with pain and pressure over his maxillary sinuses to the point that is draining and he is having nausea vomiting and diarrhea. Patient did take an nausea pill that he had from a previous prescription and it did seem to help. Patient denies any fever or chills, coughs etc. Patient was given Zofran and a liter normal saline here in ER and already says he is feeling better. Review of Systems General: Reports: 10 or more systems reviewed and unremarkable except in HPI and below PFSH ED PFSH: Medical History Obesity Mitral valve regurgitation Hypertension Benign essential hypertension Prediabetes GERD (gastroesophageal reflux disease) Grade I diastolic dysfunction Surgical History S/P coronary angiogram H/O hernia repair History of rhinoplasty History of circumcision Family History Other CAD (coronary artery disease) Hypertension Social History Smoking and tobacco/nicotine status: never used tobacco/nicotine Alcohol intake: never Substance/Drug Use: never Physical Exam Const: COMMON NORMALS: no acute distress, average body habitus, patient oriented x3, no limitations, healthy appearing, alert and well nourished HENMT: COMMON NORMALS: normocephalic, atraumatic, hearing grossly normal bilaterally, Normal external nose present, moist oral mucous membranes and oropharynx normal HEAD & SCALP: normocephalic and atraumatic FACE & SINUS: sinus tenderness (Tender to palpation over maxillary sinuses bilaterally) NOSE: Normal external nose present Eye: COMMON NORMALS: Equal, round and reactive pupils present, EOMs intact bilaterally, conjunctivae normal and no scleral icterus CONJUNCTIVA: Yes conjunctivae normal PUPIL: Yes Equal, round and reactive pupils present Neck/C-Spine: COMMON NORMALS: full ROM, no lymphadenopathy, supple, no meningeal signs and no JVD Chest: COMMONS NORMALS: normal inspection of the chest and normal palpation of entire chest wall Resp: COMMON NORMALS: normal respiratory effort, No retractions, No use of accessory muscles and clear to auscultation bilaterally AUSCULTATION: clear to auscultation bilaterally Cardio: COMMON NORMALS: no JVD, regular rate, regular rhythm, S1 normal heart sound present, S2 normal heart sound present, No gallops present (Cardio), No clicks present (Cardio), No murmurs present (Cardio) and No rub (Cardio) RATE: regular rate RHYTHM: regular rhythm HEART SOUNDS: S1 normal heart sound present and S2 normal heart sound present GI: COMMON NORMALS: Normal to inspection, nondistended, normoactive bowel sounds present, Soft to palpation, non-tender, No hepatosplenomegaly present and no masses PALPATION: Yes Soft to palpation and Yes No hepatosplenomegaly present Neuro: COMMON NORMALS: patient oriented x3 SENSORIUM/ORIENTATION: Yes alert MENINGEAL SIGNS: Yes no meningeal signs Course Vital Signs: Vital signs: Vital Signs Temperature 98.2 F 12/22/23 13:58 Pulse Rate 88 12/22/23 13:58 Respiratory Rate 16 12/22/23 13:58 Blood Pressure 135/80 12/22/23 13:58 Pulse Oximetry 98 12/22/23 13:58 Oxygen Delivery Me thod Room Air 12/22/23 10:23 MDM - Nausea/Vomiting/Diarrhea Medical Decision Making Patient had lab work that included CBC CMP magnesium and urinalysis, all of which was essentially benign. Physical exam showed probable maxillary sinusitis. Patient improved with 4 mg Zofran and 1 L normal saline. Patient be discharged on antibiotics and Zofran. Lab Data 12/22/23 10:59 12/22/23 10:59 Laboratory Results WBC 8.78 10^3/uL (3.29-11.43) 12/22/23 10:59 RBC 4.41 10^6/uL (3.85-5.65) 12/22/23 10:59 Hgb 14.40 g/dL (11.27-16.99) 12/22/23 10:59 Hct 43.0 % (37-53) 12/22/23 10:59 MCV 97.5 fl (82-101) 12/22/23 10:59 MCH 32.7 pg (27-33) 12/22/23 10:59 MCHC 33.5 g/dL (30-55) 12/22/23 10:59 RDW 13.2 % (12.1-15.1) 12/22/23 10:59 Plt Count 224 10^3/cmm (157-399) 12/22/23 10:59 MPV 9.6 fL (7.4-10.4) 12/22/23 10:59 Neut % (Auto) 60.1 % 12/22/23 10:59 Lymph % (Auto) 29.4 % 12/22/23 10:59 [place] % (Auto) 8.4 % 12/22/23 10:59 Eos % (Auto) 1.0 % 12/22/23 10:59 Baso % (Auto) 0.6 % 12/22/23 10:59 Neut # (Auto) 5.28 10^3/uL (1.8-7.7) 12/22/23 10:59 Lymph # (Auto) 2.6 10^3/uL (0.8-4.8) 12/22/23 10:59 [place] # (Auto) 0.7 10^3/uL (0.2-0.9) 12/22/23 10:59 Eos # (Auto) 0.1 10^3/uL (0.0-0.8) 12/22/23 10:59 Baso # (Auto) 0.1 10^3/uL (0.0-0.1) 12/22/23 10:59 Nucleated RBC % (auto) 0 % 12/22/23 10:59 Nucleated RBCs # 0.0 /100WBC 12/22/23 10:59 Sodium 137 mmol/L (136-145) 12/22/23 10:59 Potassium 3.6 mmol/L (3.5-5.1) 12/22/23 10:59 Chloride 106 mmol/L (98-107) 12/22/23 10:59 Carbon Dioxide 20 mmol/L (22-29) L 12/22/23 10:59 Anion Gap 14.6 (5-19) 12/22/23 10:59 BUN 19 mg/dL (8-23) 12/22/23 10:59 Creatinine 1.2 mg/dL (0.7-1.2) 12/22/23 10:59 GFR Calculation Not Reportable 12/22/23 10:59 Glucose 135 mg/dL (65-115) H 12/22/23 10:59 Calculated Osmolality 288 mOsm/kg (285-295) 12/22/23 10:59 Calcium 7.6 mg/dL (8.5-10.5) L 12/22/23 10:59 Magnesium 1.8 mg/dL (1.7-2.3) 12/22/23 10:59 Total Bilirubin 0.5 mg/dL (0.15-1.2) 12/22/23 10:59 AST 44 U/L (0-40) H 12/22/23 10:59 ALT 69 U/L (0-41) H 12/22/23 10:59 Alkaline Phosphatase 56 U/L (40-130) 12/22/23 10:59 Total Protein 7.6 g/dL (6.6-8.7) 12/22/23 10:59 Albumin 4.0 g/dL (3.5-5.2) 12/22/23 10:59 Globulin 3.6 g/dL (1.3-4.6) 12/22/23 10:59 Lipase 68 U/L (13-60) H 12/22/23 10:59 Urine Color Yellow (Yellow) 12/22/23 11:26 Urine Appearance Clear (CLEAR) 12/22/23 11:26 Urine pH 5 (5-7) 12/22/23 11:26 Ur Specific [place] 1.020 (1.005-1.030) 12/22/23 11:26 Urine Protein Trace (Negative) 12/22/23 11:26 Urine Glucose (UA) Norm (Normal) 12/22/23 11:26 Urine Ketones 1+ (Negative) H 12/22/23 11:26 Urine Blood Neg (Negative) 12/22/23 11:26 Urine Nitrate Negative (Negative) 12/22/23 11:26 Urine Bilirubin Neg (Negative) 12/22/23 11:26 Urine Urobilinogen Neg mg/dL (Negative) 12/22/23 11:26 Ur Leukocyte Esterase Negative (Negative) 12/22/23 11:26 Urine RBC Rare /hpf (0-2) 12/22/23 11:26 Urine WBC 0-4 /hpf (0-5) H 12/22/23 11:26 Ur Squamous Epith Cells 0-4 /hpf (0-5) H 12/22/23 11:26 Amorphous Sediment Not Reportable 12/22/23 11:26 Urine Bacteria 1+ /hpf (NONE) H 12/22/23 11:26 Hyaline Casts 40-55 /lpf H 12/22/23 11:26 Urine Mucus 1+ /hpf 12/22/23 11:26 All radiology interpretation(s) finalized by discharge Discharge Plan Discharge Patient Disposition: Home Clinical Impression: Gastroenteritis Acute maxillary sinusitis Qualifiers: Recurrence: non-recurrent Qualified Code(s): J01.00 - Acute maxillary sinusitis, unspecified Condition: Stable Prescriptions: New amoxicillin-pot clavulanate 875-125 mg tablet 1 tab PO Q12H Qty: 20 0RF ondansetron HCl 4 mg tablet 4 mg PO Q8H PRN (Reason: nausea and vomiting) Qty: 14 0RF No Action aspirin 325 mg tablet 325 mg PO DAILY lisinopril-hydrochlorothiazide 20-25 mg tablet 1 tab PO BID Qty: 180 3RF nebivolol 20 mg tablet 40 mg PO DAILY Qty: 180 1RF magnesium oxide 400 mg magnesium capsule 400 mg PO DAILY Qty: 90 3RF furosemide 40 mg tablet 40 mg PO BID Qty: 180 1RF pantoprazole 40 mg tablet,delayed release (DR/EC) 40 mg PO DAILY Qty: 90 1RF tadalafil [Cialis] 10 mg tablet 10 mg PO DAILY PRN (Reason: sexual activity) Qty: 15 1RF Rx Instructions: admin appr 30min before sexual activity; do not use more than 1 dose per 24hrs 340 B potassium chloride 10 mEq tablet,ER particles/crystals See Rx Instructions .ROUTE .COMPLEX Qty: 90 3RF Dose Instruction: TAKE 1 TABLET BY MOUTH ONCE DAILY WITH 20MEQ FOR A TOTAL DOSE OF 30MEQ Rx Instructions: TAKE 1 TABLET BY MOUTH ONCE DAILY WITH 20MEQ FOR A TOTAL DOSE OF 30MEQ potassium chloride 20 mEq tablet extended release 20 meq PO DAILY Qty: 90 3RF vitamin B complex Tablet 1 tab PO DAILY CoQ-10 30 mg Capsule 30 mg PO DAILY Discharge Orders: Discharge ED (Routine); Ordered 12/22/23 Ordered By: Gustavo Ambrose Referrals: Lorrie Amaya DO [Primary Care Provider] - 1 week Patient Instructions: Gastroenteritis (ED), Sinusitis - Acute Activity Restrictions/Additional Instructions: Please finish all antibiotics and take nausea medicine as needed as directed. Please follow-up with your family practitioner within next 7 to 10 days for further evaluation and treatment. Coding Level of Care Code ED Video Game Technician for Pee Mendez
--- NOTE | 2023-12-22 13:18 | PC.NURSE ---
discharged delayed due to waiting for IV fluids to finish.
[2023-12-22 13:58] VITALS: BP 135/80; PULSE 88; RESP 16; TEMP 36.8; O2SAT 98
== END 2023-12-22 13:59 | disposition home or self-care (01) ==
PROVIDERS: Physician Assistant; Emergency Provider Emergency Medicine; PCP Family Medicine
DX: K52.9 Noninfective gastroenteritis and colitis, unspecified (principal); J01.00 Acute maxillary sinusitis, unspecified; Z79.82 Long term (current) use of aspirin; I10 Essential (primary) hypertension
CPT/HCPCS: 36415; 80053; 81001; 83690; 83735; 85025; 96361; 96374; 99284; J2405; J7030

== ENCOUNTER → 2023-12-28 09:01 | Outpatient (BNVA) | payer MEDICARE, OTHER, SELFPAY | PROVIDERS: PCP Family Medicine; Visit Provider Nurse Practitioner Family | DX: I25.10 Atherosclerotic heart disease of native coronary artery without angina pectoris (principal); I11.9 Hypertensive heart disease without heart failure | CPT/HCPCS: 99214 ==

== ENCOUNTER → 2024-01-15 10:55 | Outpatient (BNVA) | payer MEDICARE, OTHER, SELFPAY | PROVIDERS: PCP Family Medicine; Visit Provider Nurse Practitioner Family | DX: L57.0 Actinic keratosis (principal); L82.1 Other seborrheic keratosis; D22.5 Melanocytic nevi of trunk; L81.4 Other melanin hyperpigmentation; L57.8 Other skin changes due to chronic exposure to nonionizing radiation; Z85.828 Personal history of other malignant neoplasm of skin | CPT/HCPCS: 17000; 99213 ==

== ENCOUNTER → 2024-06-18 08:15 | Outpatient (BNVA) | payer MEDICARE, OTHER, SELFPAY | PROVIDERS: PCP Family Medicine | DX: E11.9 Type 2 diabetes mellitus without complications (principal) | CPT/HCPCS: 80053; 80061; 83036; 83721; 85025 ==

== ENCOUNTER → 2024-07-01 14:37 | Outpatient (BNVA) | payer MEDICARE, OTHER, SELFPAY | PROVIDERS: PCP Family Medicine; Visit Provider Internal Medicine | DX: I10 Essential (primary) hypertension (principal); I34.0 Nonrheumatic mitral (valve) insufficiency; E78.1 Pure hyperglyceridemia; R73.03 Prediabetes; I51.9 Heart disease, unspecified; E66.9 Obesity, unspecified; R07.9 Chest pain, unspecified; Z68.39 Body mass index [BMI] 39.0-39.9, adult | CPT/HCPCS: 99214 ==

== ENCOUNTER → 2024-07-17 08:19 | Outpatient (BNVA) | payer MEDICARE, OTHER, SELFPAY | PROVIDERS: PCP Family Medicine; Visit Provider Nurse Practitioner Family | DX: L82.1 Other seborrheic keratosis (principal); D22.5 Melanocytic nevi of trunk; L57.8 Other skin changes due to chronic exposure to nonionizing radiation; L81.4 Other melanin hyperpigmentation; L57.0 Actinic keratosis; Z85.828 Personal history of other malignant neoplasm of skin; D48.5 Neoplasm of uncertain behavior of skin | CPT/HCPCS: 11102; 17000; 99213 ==

== ENCOUNTER 2024-07-29 08:15 | Outpatient (CLI) | payer MEDICARE, OTHER, SELFPAY ==
[2024-07-29 09:06] VITALS: BMI 38.7
--- NOTE | 2024-07-29 09:07 | NMCV_ITS ---
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 Supine position only as patient was unable to lay prone. SPECT RESULTS Technical Quality: Good Raw Data Analysis: Normal Image Corrections: No attenuation or motion correction applied Summed Stress Score: 2 Summed Rest Score: 2 Summed Difference Score: 2 PERFUSION FINDINGS Large area of fixed perfusion defect noted from basal to mid inferior wall on both stress and rest images suggestive of old myocardial infarction versus scarring, medium sized area of fixed perfusion defect noted in the mid anterior wall surrounded by medium sized area of severe reversibility in the mid to distal anterior and anterolateral suggestive of ischemia in the LAD territory FUNCTIONAL RESULTS (calculated via Gated SPECT) Stress Image LV EF (%): 70 Stress EDV (mL):121 TID: 1.28 Stress ESV (mL):36 FUNCTIONAL FINDINGS: Left and ejection fraction appeared to be normal no wall motion abnormality,TID ratio is elevated which could be secondary to left ventricle hypertrophy/subendocardial ischemia however cannot rule out multivessel coronary artery disease. IMPRESSIONS Medium sized area of old myocardial infarction versus scarring noted in the basal to mid inferior wall. Medium sized area of old myocardial infarction surrounded by medium sized area of moderate to severe ischemia noted in the mid to distal and anterior and anterolateral wall. This is a abnormal stress test.TID ratio is elevated which could be secondary to subendocardial ischemia/hypertrophy however cannot rule out multivessel coronary artery disease. Génesis Marinelli MD (Electronically Signed) Final Date: 29 July 2024 14:22 S
--- NOTE | 2024-07-29 09:07 | ECG_ITS ---
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 The perfusion scan will be documented separately. DATA: Baseline heart rate was 83 next beats per minute. Baseline blood pressure was 138/79 millimeters of mercury. Target heart rate was 143. Maximum heart rate achieved was 82 which was 57% of the predicted target heart rate. Maximum blood pressure was 138/89 millimeters of mercury. The reason for ending the test was completion of the protocol. The patient did not experience any symptoms. [] ELECTROCARDIOGRAM: BASELINE: Sinus rhythm. Normal axis. Otherwise, no ST-T changes suggestive of ischemia noted. No arrhythmia noted. [] EXERCISE: After Lexiscan injection, no ST-T changes suggestive of ischemic noted. Frequent PVCs were noted 1. EKG not suggestive of ischemia 2. Lexiscan injection unremarkable. 3. Perfusion scan will be documented separately. Electronically Signed On 09-03-2024 23:26:55 BUHR MILL OPERATOR by DAVID FAYE [email or web address]
[2024-07-29] MEDS: regadenoson 0.4 Mg/5 ml Syringe IVP (10:17)
[2024-07-29 10:28] VITALS: BP 118/65; PULSE 75
== END 2024-07-29 08:16 | disposition home or self-care (01) ==
PROVIDERS: Visit Provider Internal Medicine
DX: R07.9 Chest pain, unspecified (principal); R06.02 Shortness of breath; R94.39 Abnormal result of other cardiovascular function study
CPT/HCPCS: 36415; 78452; 93017; 96374; A9500; J2785

== ENCOUNTER 2024-08-04 14:11 | Inpatient (IN) | payer MEDICARE, OTHER, SELFPAY ==
[2024-08-04] VITALS (28 sets, daily range): BP systolic 116–169; BP diastolic 64–90; PULSE 58–79; RESP 10–24; TEMP 34.4–36.4; O2SAT 93–96; BMI 40.4
--- NOTE | 2024-08-04 01:23 | ECG_ITS ---
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
--- NOTE | 2024-08-04 14:29 | CTR_ITS ---
PROCEDURE INFORMATION: Exam: CT Head Without Contrast Exam date and time: 08/04/2024 3:34 PM Age: 79 years old Clinical indication: Stroke-like symptoms; Dizziness/giddiness; Additional info: Symptoms of acute stroke TECHNIQUE: Imaging protocol: Computed tomography of the head without contrast. Radiation optimization: All CT scans at this facility use at least one of these dose optimization techniques: automated exposure control; mA and/or kV adjustment per patient size (includes targeted exams where dose is matched to clinical indication); or iterative reconstruction. Other technique: STROKE PROTOCOL was implemented. COMPARISON: CT head w con [id number] 04/27/2019 10:05 PM RADIATION DOSE METRICS: Total DLP (mGy-cm): 1134.58 FINDINGS: Brain: No hemorrhage. Mild periventricular and deep white matter hypodensities suggesting chronic small vessel ischemic changes. [id number] diffuse volume loss. No mass effect. Cerebral ventricles: No ventriculomegaly. Paranasal sinuses: Visualized sinuses are unremarkable. No fluid levels. Mastoid air cells: Visualized mastoid air cells are well aerated. Bones: Unremarkable. No acute fracture. Soft tissues: Unremarkable. CT/CT head thrombolytic [id number] IMPRESSION: No acute intracranial abnormality. ASSESSMENT: ASPECTS ([place] Stroke Program Early CT Score) is 10.
--- NOTE | 2024-08-04 14:32 | CTR_ITS ---
PROCEDURE INFORMATION: Exam: CTA Head With Contrast, Arteriography Exam date and time: 08/04/2024 3:37 PM Age: 79 years old Clinical indication: Dizziness and giddiness; Additional info: Dizzy TECHNIQUE: Imaging protocol: Computed tomographic angiography of the head with contrast. Exam focused on the arteries. 3D rendering (Not supervised by radiologist): MIP and/or 3D reconstructed images were created by the technologist. Radiation optimization: All CT scans at this facility use at least one of these dose optimization techniques: automated exposure control; mA and/or kV adjustment per patient size (includes targeted exams where dose is matched to clinical indication); or iterative reconstruction. Contrast material: OMNI 350; Contrast volume: 100 ml; Contrast route: INTRAVENOUS (IV); COMPARISON: CT head thrombolytic [id number] 08/04/2024 3:34 PM RADIATION DOSE METRICS: Total DLP (mGy-cm): 550.16 FINDINGS: ANTERIOR CIRCULATION: Right internal carotid artery: Intracranial segment is patent with no significant stenosis. No aneurysm. Dense atherosclerotic calcifications in cavernous portion noted. Right middle cerebral artery: No occlusion or significant stenosis. No aneurysm. Right anterior cerebral artery: No occlusion or significant stenosis. No aneurysm. Left internal carotid artery: Intracranial segment is patent with no significant stenosis. No aneurysm. Dense atherosclerotic calcifications in cavernous portion noted. Left middle cerebral artery: No occlusion or significant stenosis. No aneurysm. Left anterior cerebral artery: No occlusion or significant stenosis. No aneurysm. POSTERIOR CIRCULATION: Right vertebral artery: No occlusion or significant stenosis. No aneurysm. Left vertebral artery: No occlusion or significant stenosis. No aneurysm. Basilar artery: No occlusion or significant stenosis. No aneurysm. Right posterior cerebral artery: No occlusion or significant stenosis. No aneurysm. Left posterior cerebral artery: No occlusion or significant stenosis. No aneurysm. Brain: No definite mass, mass effect, or midline shift. Cerebral ventricles: No ventriculomegaly. Bones/joints: Unremarkable. No acute fracture. Soft tissues: Unremarkable. PROCEDURE INFORMATION: Exam: CTA Neck With Contrast Exam date and time: 08/04/2024 3:37 PM Age: 79 years old Clinical indication: Dizziness and giddiness; Additional info: Dizzy TECHNIQUE: Imaging protocol: Computed tomographic angiography of the neck with contrast. Exam focused on the cervical segments of the vasculature. 3D rendering (Not supervised by radiologist): MIP and/or 3D reconstructed images were created by the technologist. Radiation optimization: All CT scans at this facility use at least one of these dose optimization techniques: automated exposure control; mA and/or kV adjustment per patient size (includes targeted exams where dose is matched to clinical indication); or iterative reconstruction. Contrast material: OMNI 350; Contrast volume: 100 ml; Contrast route: INTRAVENOUS (IV); COMPARISON: CT head thrombolytic [id number] 08/04/2024 3:34 PM RADIATION DOSE METRICS: Total DLP (mGy-cm): 550.16 FINDINGS: Right common carotid artery: No stenosis. No dissection or occlusion. Right internal carotid artery: No stenosis of the extracranial segment. No dissection or occlusion. Right external carotid artery: No occlusion or stenosis of the origin. Left common carotid artery: No stenosis. No dissection or occlusion. Left internal carotid artery: No stenosis of the extracranial segment. No dissection or occlusion. Left external carotid artery: No occlusion or stenosis of the origin. Right vertebral artery: No stenosis. No dissection or occlusion. Left vertebral artery: No stenosis. No dissection or occlusion. Soft tissues: No significant soft tissue swelling. Benign-appearing focal dense calcification in left lobe thyroid gland noted. Bones/joints: No acute fracture. Prominent spondylotic changes of the spine with neural foraminal narrowing at multiple levels noted. CT/CT angio headneck* [id number] IMPRESSION: No large vessel stenosis or occlusion. IMPRESSION: No stenosis or occlusion. REFERENCES: NASCET CRITERIA. The degree of stenosis in the cervical segment of the internal carotid artery is based on NASCET criteria. Normal is no stenosis. Mild is less than 50% stenosis. Moderate is 50-69% stenosis. Severe is 70% to 99% stenosis. Total occlusion is no detectable patent lumen.
[2024-08-04 14:36] LABS: Glucose Point of Care 181 mg/dL (70-110)
--- NOTE | 2024-08-04 14:37 | W.ED.WEAKNES ---
HPI - Weakness General: Chief complaint: Weakness Stated complaint: n/v; weakness Time Seen by Provider: 08/04/24 14:17 Source: patient Mode of arrival: ambulatory Limitations: no limitations History of Present Illness: 79-year-old male states that starting at 1:30 PM he is having sudden severe dizziness. He states having dizziness at rest he feels like the room is spinning causing him to have vomiting. He denies any headaches denies any worsening improving factors no slurred speech denies any history of dizziness like this in the past Associated symptoms: Reports nausea and vomiting; Denies chest pain, chills, fever(s) or headache(s) Review of Systems Const: Denies: fever(s), chills, body aches or change in appetite ENMT: Denies: throat pain or dental pain Card: Denies: chest pain Resp: Denies: dyspnea GI: Reports: nausea and vomiting; Denies: abdominal pain or diarrhea Musc: Denies: neck pain Skin/Breast: Denies: rash Neuro: Reports: dizziness; Denies: headache(s) PFSH ED PFSH: Medical History Obesity Mitral valve regurgitation Hypertension Benign essential hypertension Prediabetes GERD (gastroesophageal reflux disease) Grade I diastolic dysfunction Surgical History S/P coronary angiogram H/O hernia repair History of rhinoplasty History of circumcision Family History Other CAD (coronary artery disease) Hypertension Social History Smoking and tobacco/nicotine status: never used tobacco/nicotine Alcohol intake: never Substance/Drug Use: never Physical Exam Const: COMMON NORMALS: patient oriented x3 HENMT: COMMON NORMALS: normocephalic and atraumatic HEAD & SCALP: normocephalic and atraumatic Eye: COMMON NORMALS: Equal, round and reactive pupils present and EOMs intact bilaterally PUPIL: Yes Equal, round and reactive pupils present OTHER: Nystagmus noted Neck/C-Spine: COMMON NORMALS: full ROM and supple Chest: COMMONS NORMALS: normal inspection of the chest and normal palpation of entire chest wall Resp: COMMON NORMALS: normal respiratory effort, No retractions, No use of accessory muscles and clear to auscultation bilaterally AUSCULTATION: clear to auscultation bilaterally Cardio: COMMON NORMALS: regular rate, regular rhythm and No murmurs present (Cardio) RATE: regular rate RHYTHM: regular rhythm GI: COMMON NORMALS: Normal to inspection, nondistended, normoactive bowel sounds present, Soft to palpation, non-tender and no masses PALPATION: Yes Soft to palpation Extremity: COMMON NORMALS: normal to inspection and full ROM Neuro: COMMON NORMALS: patient oriented x3, moves all extremities and no focal motor deficits Psych: COMMON NORMALS: mental status grossly normal, Normal thought process present and cooperative THOUGHT PROCESS: Normal thought process present Skin: COMMON NORMALS: no rashes or lesions noted and no wounds GENERAL SKIN EXAM: no rashes or lesions noted Course Reevaluation(s): Reevaluation #1: Struggles: Patient patient followed by neurologist concern for possible posterior stroke I spoke to patient neurologist spoke to patient as well and he is refusing TNKase at this time he states that he does not want to take it. He has Medical Decision Making past he understands the risks and benefits Time: 15:10 Reevaluation #2: Patient now is wanting to receive lytics for his possible posterior stroke did go through consent with him again Dr. Jovel spoke to him as well as spoke to Philomena and will give him lytics as he is still in the timeframe with last known normal at 1330 Time: 15:55 Vital Signs: Vital signs: Vital Signs Temperature 97.5 F L 08/04/24 14:14 Pulse Rate 70 08/04/24 14:14 Respiratory Rate 18 08/04/24 14:14 Blood Pressure 168/66 08/04/24 14:14 Pulse Oximetry 95 08/04/24 14:14 MDM - Weakness Medical Decision Making Patient presents here with severe vertigo possible posterior stroke patient was recommended to have TNKase he originally refused to me and then also refused to Dr. Quach. Patient has changed his mind and now does want the TNKase. Did give him TNKase spoke to Dr. Quach informed him we were going to give it to him will admit to the ICU at this time Medical Records I reviewed the patient's medical records. Lab Data I reviewed the patient's lab results. 08/04/24 14:34 08/04/24 14:[address] 08/04/24 14:29 IMPRESSION: No acute intracranial abnormality. ASSESSMENT: ASPECTS ([place] Stroke Program Early CT Score) is 10. Head/Neck CTA 08/04/24 14:32 IMPRESSION: No large vessel stenosis or occlusion. IMPRESSION: No stenosis or occlusion. REFERENCES: NASCET CRITERIA. The degree of stenosis in the cervical segment of the internal carotid artery is based on NASCET criteria. Normal is no stenosis. Mild is less than 50% stenosis. Moderate is 50-69% stenosis. Severe is 70% to 99% stenosis. Total occlusion is no detectable patent lumen. Laboratory Results WBC 9.09 10^3/uL (3.29-11.43) 08/04/24 14:34 RBC 4.36 10^6/uL (3.85-5.65) 08/04/24 14:34 Hgb 13.90 g/dL (11.27-16.99) 08/04/24 14:34 Hct 41.3 % (37-53) 08/04/24 14:34 MCV 94.7 fl (82-101) 08/04/24 14:34 MCH 31.9 pg (27-33) 08/04/24 14:34 MCHC 33.7 g/dL (30-55) 08/04/24 14:34 RDW 13.0 % (12.1-15.1) 08/04/24 14:34 Plt Count 225 10^3/cmm (157-399) 08/04/24 14:34 MPV 10.1 fL (7.4-10.4) 08/04/24 14:34 Neut % (Auto) 49.5 % 08/04/24 14:34 Lymph % (Auto) 39.1 % 08/04/24 14:34 [place] % (Auto) 8.8 % 08/04/24 14:34 Eos % (Auto) 1.0 % 08/04/24 14:34 Baso % (Auto) 1.0 % 08/04/24 14:34 Neut # (Auto) 4.51 10^3/uL (1.8-7.7) 08/04/24 14:34 Lymph # (Auto) 3.6 10^3/uL (0.8-4.8) 08/04/24 14:34 Atlantic # (Auto) 0.8 10^3/uL (0.2-0.9) 08/04/24 14:34 Eos # (Auto) 0.1 10^3/uL (0.0-0.8) 08/04/24 14:34 Baso # (Auto) 0.1 10^3/uL (0.0-0.1) 08/04/24 14:34 Nucleated RBC % (auto) 0 % 08/04/24 14:34 Nucleated RBCs # 0.0 /100WBC 08/04/24 14:34 PT 13.60 SECONDS (12.1-14.9) 08/04/24 14:34 INR 1.01 (0.8-1.2) 08/04/24 14:34 APTT 27.6 SECONDS (23.9-36.7) 08/04/24 14:34 Sodium 142 mmol/L (136-145) 08/04/24 14:34 Potassium 3.2 mmol/L (3.5-5.1) L 08/04/24 14:34 Chloride 105 mmol/L (98-107) 08/04/24 14:34 Carbon Dioxide 22 mmol/L (22-29) 08/04/24 14:34 Anion Gap 18.2 (5-19) 08/04/24 14:34 BUN 16 mg/dL (8-23) 08/04/24 14:34 Creatinine 1.0 mg/dL (0.7-1.2) 08/04/24 14:34 GFR Calculation Not Reportable 08/04/24 14:34 Glucose 174 mg/dL (65-115) H 08/04/24 14:34 POC Glucose 181 mg/dL (70-110) H 08/04/24 14:32 Calculated Osmolality 299 mOsm/kg (285-295) H 08/04/24 14:34 Calcium 8.3 mg/dL (8.5-10.5) L 08/04/24 14:34 Total Bilirubin 0.3 mg/dL (0.15-1.2) 08/04/24 14:34 AST 24 U/L (0-40) 08/04/24 14:34 ALT 29 U/L (0-41) 08/04/24 14:34 Alkaline Phosphatase 53 U/L (40-130) 08/04/24 14:34 Total Protein 6.9 g/dL (6.6-8.7) 08/04/24 14:34 Albumin 3.9 g/dL (3.5-5.2) 08/04/24 14:34 Globulin 3.0 g/dL (1.3-4.6) 08/04/24 14:34 Lipase 37 U/L (13-60) 08/04/24 14:34 Ethyl Alcohol < 10 mg/dL (0-10) 08/04/24 14:34 All radiology interpretation(s) finalized by discharge EKG Data EKG 1: I personally reviewed and interpreted this EKG as follows: EKG interpretation date: 08/04/24 EKG interpretation time: 13:00 Interpretation: nsr hr 72 no stelevation qrs 100 qtc 453 Discharge Plan Discharge Patient Disposition: Admitted As Inpatient Admit Provider: Darion Ware Clinical Impression: CVA (cerebral vascular accident), Vertigo Condition: Stable Coding Level of Care Code ED Assisted Living Nursing Director for Chg Fwd Related Data Home Medications Medication Instructions Recorded Confirmed aspirin 325 mg tablet 325 mg PO DAILY 04/08/20 08/04/24 coenzyme Q10 30 mg capsule 30 mg PO DAILY 12/22/23 08/04/24 vitamin B complex 1 tab PO DAILY 12/22/23 08/04/24 pantoprazole 40 mg tablet,delayed 40 mg PO DAILY 08/04/24 08/04/24 release potassium chloride 20 mEq See Rx Instructions .Route .COMPLEX 08/04/24 08/04/24 tablet,extended release Previous Rx's Medication Instructions Recorded tadalafil 10 mg tablet (Cialis) 10 mg PO DAILY PRN sexual activity 08/07/23 #15 tabs magnesium oxide 400 mg PO DAILY #90 caps 12/14/23 furosemide 40 mg tablet 40 mg PO BID #180 tabs 06/18/24 lisinopril 20 1 tab PO BID #180 tabs 06/18/24 mg-hydrochlorothiazide 25 mg tablet nebivolol 20 mg tablet 40 mg (2 x 20 mg) PO DAILY #180 09/17/24 tabs potassium chloride 10 mEq See Rx Instructions .Route 06/18/24 tablet,extended release(part/cryst) .COMPLEX #90 tabs Allergies Allergy/AdvReac Type Severity Reaction Status Date / Time Calcium Channel Blocking AdvReac Mild unknown Verified 07/01/24 14:55 Agent Dilt ciprofloxacin [From Cipro] AdvReac Mild unknown Verified 07/01/24 14:55 gabapentin AdvReac Mild HR dropped Verified 07/01/24 14:55 <40 bpm metformin AdvReac Mild unknown Verified 07/01/24 14:55 fenofibrate AdvReac irregular Verified 07/01/24 14:55 heart rate PRAVASTATIN Allergy Intermediate SWELLING Uncoded 07/01/24 14:55 Jardiance Allergy Mild muscle pain Uncoded 07/01/24 14:55 NIH stroke score NIHSS Level Of Consciousness - 1a: 0 Level Of Consciousness Questions - 1b: Both Correct Level Of Consciousness Commands - 1c: Both Correct Best Gaze - 2: Normal Visual [place] - 3: No Visual Loss Facial Palsy - 4: Normal Motor Arm Right - 5: No Drift Motor Arm Left - 5: No Drift Motor Leg Left - 6: No Drift Limb Ataxia - 7: Present In One Limb Sensory - 8: Normal Best Language - 9: No Aphasia Dysarthia - 10: Normal Extinction And Inattention - 11: 0
[2024-08-04 14:46] LABS: Basophils # 0.1 10^3/uL (0.0-0.1); Eosinophils # 0.1 10^3/uL (0.0-0.8); Hematocrit 41.3 % (37-53); Lymphocytes # 3.6 10^3/uL (0.8-4.8); Lymphocytes % 39.1 %; Mean Corpuscular HGB Conc 33.7 g/dL (30-55); Mean Corpuscular Hemoglobin 31.9 pg (27-33); Mean Corpuscular Volume 94.7 fl (82-101); Mean Platelet Volume 10.1 fL (7.4-10.4); Monocytes # 0.8 10^3/uL (0.2-0.9); Monocytes % 8.8 %; Neutrophils # 4.51 10^3/uL (1.8-7.7); Neutrophils % 49.5 %; Nucleated Red Blood Cells % 0 %; Platelet Count 225 10^3/cmm (157-399); Red Blood Count 4.36 10^6/uL (3.85-5.65); White Blood Count 9.09 10^3/uL (3.29-11.43)
[2024-08-04] MEDS: iohexol 350 mg/mL 500 mL Btl (per mL) IV (14:48)
[2024-08-04] MEDS: meclizine 25 mg tablet 50 MG PO (14:56)
[2024-08-04 14:57] LABS: INR 1.01 (0.8-1.2)
[2024-08-04] MEDS: sodium chloride 0.9% 1,000 ML 999 ML IV (14:58)
[2024-08-04] MEDS: ondansetron 2 mg/ML SDV 2 mL 4 MG IVP ×3 (14:58→17:56)
[2024-08-04 14:59] LABS: Partial Thromboplastin Time 27.6 SECONDS (23.9-36.7)
[2024-08-04 15:03] LABS: Alanine Aminotransferase 29 U/L (0-41); Albumin Level 3.9 g/dL (3.5-5.2); Alkaline Phosphatase 53 U/L (40-130); Anion Gap 18.2 (5-19); Aspartate Amino Transferase 24 U/L (0-40); Blood Urea Nitrogen 16 mg/dL (8-23); Calcium 8.3 mg/dL (8.5-10.5); Carbon Dioxide 22 mmol/L (22-29); Chloride 105 mmol/L (98-107); Creatinine Clr Calc Pharmacy 81.1895; Glucose 174 mg/dL (65-115); Lipase 37 U/L (13-60); Osmolality Calculated 299 mOsm/kg (285-295); Potassium 3.2 mmol/L (3.5-5.1); Sodium 142 mmol/L (136-145); Total Bilirubin 0.3 mg/dL (0.15-1.2); Total Protein 6.9 g/dL (6.6-8.7)
[2024-08-04 15:04] LABS: Alcohol Level < 10 mg/dL (0-10)
--- NOTE | 2024-08-04 15:37 | PM.CONSULT ---
Providers/Reason For Consult Consulting Physician/Specialty*: Brayden Quach MD neurology and epilepsy Reason for Consult*: Acute care/code stroke emergency department room #14 Primary Care Provider: Maryan Winslow NP History of Present Illness History of Present Illness Teddy Gayle is a 79 year old male with a history of coronary artery disease with stenosis of the left main coronary artery, diverticulitis, congestive heart failure, type 2 diabetes mellitus, obesity, essential hypertension. According to the patient's family, around 1 PM on 08/04/2024 the patient was sitting at home and contacted one of the family members via phone. According to the family member the patient was crying and had slurred speech. When the family arrived the patient was reported to be slumped over in a chair and was asked being seen right lower facial weakness/drooping with inability to respond associated with severe nausea and vomiting while holding a trash can. According to the family the patient was complaining of objective vertigo where everything was spinning around. EMS was contacted and the patient was brought to [facility] emergency department. Code stroke was initiated at 2:29 PM on 08/04/2024. Noncontrast head CT 08/04/2024 reported to revealed no acute findings CT angiogram of the head and neck were performed on 08/04/2024 reported to revealed no acute findings. NIH score = 1 (secondary to mild slurred speech). Point of contact glucose Accu-Chek 181 (normal equals 70-110) CBC and comprehensive metabolic panel revealed decreased potassium at 3.2 (normal equals 3.5-5.1) with elevated serum glucose 174 (normal 65-115) Other labs were unrevealing. On neurological examination 08/04/2024 the patient displayed nystagmus on upward gaze, and right lateral gaze and complaint of dizziness. Extraocular movements were intact. There was no obvious facial weakness, no visual loss and visual howell appear to be full via confrontation. There was no focal weakness. The possibility of posterior circulation stroke cannot be excluded. This was discussed with the patient and the patient's family. Possibility of intravenous tenecteplase administration for possible posterior circulation stroke were discussed with the patient and the patient's family. The patient's family as well as the patient were reluctant to undergo intravenous tenecteplase secondary to potential side effects that were discussed that can be associated with intravenous tenecteplase. The patient also stated that he had similar episode of dizziness 2 or 3 years ago and was evaluated in the emergency room and the symptoms resolved in several hours. The patient's family decided to have a conference with other family members prior to making a decision regarding intravenous tenecteplase. While the family was making a decision regarding intravenous tenecteplase while the patient was still in the acute intravenous thrombolytic window, the patient reported that his dizziness and nausea improved. Initially the patient rated the dizziness and vertigo a 10 on a scale of 1-10 with 10 being the most severe. On reevaluation approximately 5 to 10 minutes later the patient reported that the dizziness and vertigo had improved to a 5 on a scale of 1-10 with 10 being the most severe. The patient also reported that he has been experiencing right ear discomfort. On otoscopic evaluation the patient had earwax impaction in the right ear. Left ear appeared to be clear. Since the patient's family was reluctant and refused to give consent for intravenous thrombolytics (tenecteplase) and the patient reported improvement in his dizziness and vertigo and nausea and vomiting, and on exam examination the nystagmus also were improved, intravenous thrombolytics were not administered. At 3:55 PM on 08/04/2024 I received a phone call from the attending emergency room physician, Misti Malin MD that the patient and the patient's family changed their mind and wanted to sign consent to receive intravenous tenecteplase (TNKase). Therefore, intravenous tenecteplase (TNKase) was ordered and administered by the emergency room physician, Misti Malin MD. I recommended the patient be evaluated by ENT for right ear wax impaction and right ear discomfort as well as history of similar dizziness 2 to 3 years ago to rule out inner ear issues. The patient will be admitted for observation to observe for any worsening or recurrent symptoms of vertigo/dizziness. Drug allergies: Calcium channel blockers type reaction unknown Ciprofloxacin type reaction unknown Gabapentin which resulted in decreased heart rate to less than 40 Metformin type reaction unknown Fenofibrate which resulted in irregular heart rate Pravastatin which resulted in swelling Jardiance which resulted in muscle aches and pains Current medications: Aspirin 325 mg p.o. daily Coenzyme Q10 30 mg p.o. daily Lasix 40 mg p.o. twice daily Lisinopril 20 mg/hydrochlorothiazide 25 mg p.o. twice daily Magnesium oxide 400 mg p.o. daily Nebivolol 40 mg p.o. daily Protonix 40 mg p.o. daily Potassium chloride 10 mEq to be given as directed Tadalafil 10 mg p.o. daily, as needed Vitamin B complex 1 p.o. daily Past medical history: Vertigo 2 to 3 years ago Hypokalemia Type 2 diabetes mellitus Essential hypertension Coronary artery disease Congestive heart failure Obesity Diverticulitis Erectile dysfunction Hypertriglyceridemia Gastroesophageal reflux disease Mitral valve regurgitation Neuropathy Habits: None the patient denied smoking Family history: Negative for strokes Review of Systems General: Reports: 10 or more systems reviewed and unremarkable except in HPI and below Medications/Allergies Home Medications Medication Instructions Recorded Confirmed Last Taken Type aspirin 325 mg tablet 325 mg PO DAILY 04/08/20 08/04/24 08/04/24 History tadalafil 10 mg tablet (Cialis) 10 mg PO DAILY PRN sexual activity 08/07/23 08/04/24 Unknown Rx #15 tabs magnesium oxide 400 mg PO DAILY #90 caps 12/14/23 08/04/24 08/04/24 Rx coenzyme Q10 30 mg capsule 30 mg PO DAILY 12/22/23 08/04/24 08/04/24 History vitamin B complex 1 tab PO DAILY 12/22/23 08/04/24 08/04/24 History furosemide 40 mg tablet 40 mg PO BID #180 tabs 06/18/24 08/04/24 08/04/24 Rx lisinopril 20 1 tab PO BID #180 tabs 06/18/24 08/04/24 08/04/24 Rx mg-hydrochlorothiazide 25 mg tablet nebivolol 20 mg tablet 40 mg (2 x 20 mg) PO DAILY #180 06/18/24 08/04/24 08/04/24 Rx tabs potassium chloride 10 mEq See Rx Instructions .Route 06/18/24 08/04/24 08/04/24 Rx tablet,extended release(part/cryst) .COMPLEX #90 tabs pantoprazole 40 mg tablet,delayed 40 mg PO DAILY 08/04/24 08/04/24 08/04/24 History release potassium chloride 20 mEq See Rx Instructions .Route .COMPLEX 08/04/24 08/04/24 08/04/24 History tablet,extended release Allergies Allergy/AdvReac Type Severity Reaction Status Date / Time Calcium Channel Blocking AdvReac Mild unknown Verified 07/01/24 14:55 Agent Dilt ciprofloxacin [From Cipro] AdvReac Mild unknown Verified 07/01/24 14:55 gabapentin AdvReac Mild HR dropped Verified 07/01/24 14:55 <40 bpm metformin AdvReac Mild unknown Verified 07/01/24 14:55 fenofibrate AdvReac irregular Verified 07/01/24 14:55 heart rate PRAVASTATIN Allergy Intermediate SWELLING Uncoded 07/01/24 14:55 Jardiance Allergy Mild muscle pain Uncoded 07/01/24 14:55 PFSH Acute PFSH: Medical History Obesity Mitral valve regurgitation Hypertension Benign essential hypertension Prediabetes GERD (gastroesophageal reflux disease) Grade I diastolic dysfunction Surgical History S/P coronary angiogram H/O hernia repair History of rhinoplasty History of circumcision Family History Other CAD (coronary artery disease) Hypertension Social History Smoking and tobacco/nicotine status: never used tobacco/nicotine Alcohol intake: never Substance/Drug Use: never Vitals/I&O/Wt Last Vital Signs Temp 97.5 F L 08/04/24 14:14 Pulse 70 08/04/24 14:14 Resp 18 08/04/24 14:14 BP 168/66 08/04/24 14:14 Pulse Ox 95 08/04/24 14:14 Weight last 48 hrs Weight 300 lb Weight 270 lb Physical Exam Narrative: Blood pressure 168/66 heart rate 70 respiration 18 temperature 97.5 ?F O2 saturation 95% on room air NIH score = 1 (secondary to mild slurred speech). The patient is alert and oriented x 3. Speech revealed some mild dysarthria. Patient follows commands. Pupils 4 mm round reactive light and accommodation. Extraocular movements intact. There were nystagmus seen on right lateral gaze and upward gaze. Patient reported dizziness during extraocular movement testing. Cranial nerves II through XII were intact without obvious facial weakness. Visual howell appear to be full via confrontation. Motor testing 5/5 bilaterally. There was no drift. Deep tendon reflexes trace to 1+ bilaterally. Plantar responses flexor bilaterally. There was no clonus. Sensory examination was intact to touch. There was no extinction on double sensory stimulation. Plantar responses flexor bilaterally. Throat clear. Lungs clear. Heart regular rhythm and rate. Extremities were negative for cyanosis. Note: During the delay while the family and the patient were making decision regarding whether or not to sign the consent for intravenous tenecteplase (TNKase) for possible posterior circulation stroke, the patient's symptoms improved from a 10 on a scale of 1-10 with 10 being the most severe to 5 on a scale of 1-10 with 10 being the most severe with improvement in his nausea and vomiting although the patient was still experiencing some occasional dry heaves. Note: Initially the patient and the patient's family refused to sign the consent for intravenous tenecteplase but later I was contacted by the attending emergency room physician who informed me that noun the patient's family and the patient wanted to undergo intravenous tenecteplase administration. I personally informed the the patient and the patient's family of the potential health risk as well as the benefits related to intravenous tenecteplase and were instructed to sign the consent form. When I discussed this is an option for possible posterior circulation stroke the family and the patient refused. But I was informed by Dr. Malin that the patient and the family reconsidered and wanted the patient to undergo intravenous thrombolytics (tenecteplase). administration Noncontrast head CT 08/04/2024 reported to revealed no acute findings CT angiogram of the head and neck were performed on 08/04/2024 reported to revealed no acute findings. Point of contact glucose Accu-Chek 181 (normal equals 70-110) CBC and comprehensive metabolic panel revealed decreased potassium at 3.2 (normal equals 3.5-5.1) with elevated serum glucose 174 (normal 65-115) Other labs were unrevealing. Data 08/04/24 14:34 08/04/24 14:34 A&P Assessment and plan (1) Vertigo: Impression: 1. Acute onset of objective vertigo at 1 PM on 08/04/2024 associated with nausea and vomiting and reported slurred speech with right lower facial drooping. In the emergency room at [facility] room #14 the patient reported objective vertigo with intermittent nausea and vomiting. Clinical examination revealed nystagmus on upward gaze and right lateral gaze but no obvious facial weakness and mild slurred speech. The patient's symptoms improved in the emergency room. But, since the possibility of posterior circulation stroke cannot be excluded, the patient and patient's family initially refused to sign the consent for intravenous thrombolytics but later gave consent for intravenous thrombolytics (tenecteplase). I was contacted by the [facility] emergency department physician, Misti Malin MD. regarding the patient and the patient's family decision for the patient to receive intravenous thrombolytics (tenecteplase). 2. Right ear wax impaction and complaints of right ear discomfort Plan: 1. Follow post intravenous tenecteplase orders per NIH stroke protocol 2. Repeat noncontrast head CT 08/05/2024 3. Recommend occupational therapy, physical therapy and speech therapy consult 4. Give patient and patient's family stroke pamphlet 5. Evaluate repeat noncontrast head CT prior to patient receiving any aspirin or other antiplatelet medication or any other antithrombolytics 6. Vital signs and neurochecks per NIH stroke protocol/ICU protocol 7. No reported allergies to statins 8. Recommend ENT evaluation for right ear wax impaction and right ear discomfort and vertigo (2) Right ear impacted cerumen: Consult Attestations Medical Necessity Statement: The patient was evaluated by neurology for objective vertigo/acute care/code stroke emergency department room #14 Coding Level of Care Code 86831 Diagnoses Vertigo R42 Right ear impacted cerumen H61.21
[2024-08-04] MEDS: tenecteplase 50mg Kit (STROKE) 25 MG IVP (16:01)
--- NOTE | 2024-08-04 16:20 | PC.NURSE ---
Pt arrives to ICU from Ed. NIH score of zero noted. No Neuro deficits noted. Pt denies pain at this time.
--- NOTE | 2024-08-04 16:33 | P.HP_ITS ---
Providers/Chief Complaint 2 Admitting Physician: Darion Ware MD Primary Care Provider: Maryan Winslow NP Chief Complaint: n/v; weakness History of Present Illness Teddy Gayle is a 79 year old male with a past medical history of type 2 diabetes mellitus, obesity, hypertriglyceridemia, GERD, hypertension, who presents [facility] due to dizziness, vertigo, unsteadiness on his feet, that started about 1 PM today. Currently patient is alert oriented x 3, following all commands, has mild dysarthria, no facial droop, can follow commands, he does tend to neglect the right side during my discussion. 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 He tells me that he woke up this morning, nothing out of the ordinary, he had breakfast, he went to the living room, to watch football. At about 1-1 30 p.m., he noticed severe onset dizziness, vertigo, feeling nauseous, he got up, he had to use the wall to ambulate as he was very unsteady on his feet, no other focal neurologic deficits, no other focal weakness, no other paresthesias reported. He was able to call his daughter, who came over, and given his symptomatology, and a 1. During my evaluation, his complaint is dizziness, vertigo, feels nauseous, does have mild dysarthria, during my discussion with him, he does not make good eye contact as I was standing on the right side, was neglecting the right side, although visual howell to my examination are intact, no significant saccadic eye movements, denies a prior history of benign positional vertigo, denies any preceding chest palpitations. Denies taking any blood thinners at home. On arrival patient was a stroke alert, NIH stroke scale 1, concern for posterior circulation stroke, last known well normal at 1330. Continues to have symptomatology of dizziness, vertigo, feeling nauseous. Initially patient had declined, TNKase. I confronted patient about this, discussed him declining TNKase. He tells me that if he wants to go ahead now and proceed. I discussed with him what TNKase was, the reason its given, the importance of timeframe and when its given in timing of a stroke. I discussed the risks of benefits of TNKase, risks including but not limited to hemorrhagic conversion, intracranial bleeding,. He tells that he just did not understand what the medication did. After discussing the risk and benefits of TNKase, shared decision making, he voiced understanding, all questions answered, agreed to proceed. This was roughly at 3:55 PM, he was still within the window. I discussed my discussion with the ER provider, who spoke to ER provider, plan on proceeding with TNKase. I reexamined patient, and again confirmed with him that he wants to go ahead and proceed with TNKase, he wants to go ahead and proceed after discussing the risk and benefits, he voiced understanding, all questions answered, agreed to proceed. Plan to admit to ICU, it, for posterior circulation stroke, he will get TNKase. He was reexamined, receiving TNKase, blood pressure 116/72, pulse 78, respiratory rate 22, temperature 97.5, 95% on room air, daughter at bedside, blood sugar 181. Review of Systems 2 Const: Denies: fever(s) or chills Card: Reports: palpitations and irregular heart rhythm; Denies: chest pain, edema, lightheadedness or syncope Resp: Denies: dyspnea or productive cough GI: Denies: abdominal pain : Denies: flank pain or difficulty urinating Musc: Denies: neck pain or back pain Neuro: Reports: lack of coordination, difficulty walking, dizziness and vertigo; Denies: headache(s), numbness in extremities, weakness in extremities, confusion, behavioral changes or difficulty communicating thoughts Endo: Denies: polyuria Medications/Allergies Home Medications Medication Instructions Recorded Confirmed Last Taken Type aspirin 325 mg tablet 325 mg PO DAILY 04/08/20 08/04/24 08/04/24 History tadalafil 10 mg tablet (Cialis) 10 mg PO DAILY PRN sexual activity 08/07/23 08/04/24 Unknown Rx #15 tabs magnesium oxide 400 mg PO DAILY #90 caps 12/14/23 08/04/24 08/04/24 Rx coenzyme Q10 30 mg capsule 30 mg PO DAILY 12/22/23 08/04/24 08/04/24 History vitamin B complex 1 tab PO DAILY 12/22/23 08/04/24 08/04/24 History furosemide 40 mg tablet 40 mg PO BID #180 tabs 06/18/24 08/04/24 08/04/24 Rx lisinopril 20 1 tab PO BID #180 tabs 06/18/24 08/04/24 08/04/24 Rx mg-hydrochlorothiazide 25 mg tablet nebivolol 20 mg tablet 40 mg (2 x 20 mg) PO DAILY #180 06/18/24 08/04/24 08/04/24 Rx tabs potassium chloride 10 mEq See Rx Instructions .Route 06/18/24 08/04/24 08/04/24 Rx tablet,extended release(part/cryst) .COMPLEX #90 tabs pantoprazole 40 mg tablet,delayed 40 mg PO DAILY 08/04/24 08/04/24 08/04/24 History release potassium chloride 20 mEq See Rx Instructions .Route .COMPLEX 08/04/24 08/04/24 08/04/24 History tablet,extended release Allergies Allergy/AdvReac Type Severity Reaction Status Date / Time Calcium Channel Blocking AdvReac Mild unknown Verified 07/01/24 14:55 Agent Dilt ciprofloxacin [From Cipro] AdvReac Mild unknown Verified 07/01/24 14:55 gabapentin AdvReac Mild HR dropped Verified 07/01/24 14:55 <40 bpm metformin AdvReac Mild unknown Verified 07/01/24 14:55 fenofibrate AdvReac irregular Verified 07/01/24 14:55 heart rate PRAVASTATIN Allergy Intermediate SWELLING Uncoded 07/01/24 14:55 Jardiance Allergy Mild muscle pain Uncoded 07/01/24 14:55 PFSH Acute 2 PFSH: Medical History Obesity Mitral valve regurgitation Hypertension Benign essential hypertension Prediabetes GERD (gastroesophageal reflux disease) Grade I diastolic dysfunction Surgical History S/P coronary angiogram H/O hernia repair History of rhinoplasty History of circumcision Family History Other CAD (coronary artery disease) Hypertension Social History Smoking and tobacco/nicotine status: never used tobacco/nicotine Alcohol intake: never Substance/Drug Use: never Vitals/I&O/Wt Last Vital Signs Temp 97.5 F L 08/04/24 14:14 Pulse 67 08/04/24 15:20 Resp 12 08/04/24 15:20 BP 158/78 08/04/24 15:20 Pulse Ox 93 08/04/24 15:20 08/04/24 08/04/24 08/04/24 06:59 14:59 22:59 Intake Total 1000 / 1000 Balance 1000 / 1000 Weight last 48 hrs Weight 136.078 kg Weight 122.47 kg Physical Exam 2 Const: COMMON NORMALS: no acute distress and patient oriented x3 HENMT: COMMON NORMALS: normocephalic HEAD & SCALP: normocephalic Eye: COMMON NORMALS: Equal, round and reactive pupils present and EOMs intact bilaterally Neck/C-Spine: COMMON NORMALS: no JVD Resp: COMMON NORMALS: normal respiratory effort, No retractions, No use of accessory muscles and clear to auscultation bilaterally AUSCULTATION: clear to auscultation bilaterally Cardio: COMMON NORMALS: no JVD, regular rate, regular rhythm, S1 normal heart sound present and S2 normal heart sound present RATE: regular rate RHYTHM: regular rhythm HEART SOUNDS: S1 normal heart sound present and S2 normal heart sound present GI: COMMON NORMALS: Normal to inspection, nondistended, normoactive bowel sounds present, Soft to palpation and non-tender Extremity: COMMON NORMALS: no calf tenderness and no pedal edema Neuro: COMMON NORMALS: patient oriented x3, CN's II-XII intact bilaterally, moves all extremities, no focal motor deficits and no sensory deficits noted OTHER: ? Stroke scale 1, mild dysarthria, complaints of dizziness, vertigo, nausea -No facial droop -[id number] normal bilaterally Psych: COMMON NORMALS: mental status grossly normal Data 08/04/24 14:34 08/04/24 14:34 A&P Assessment and plan (1) Acute ischemic multifocal posterior circulation stroke: (2) Vertigo: (3) Type 2 diabetes mellitus, without long-term current use of insulin: Qualifiers: Diabetes mellitus complication status: without complication Qualified Code(s): E11.9 - Type 2 diabetes mellitus without complications (4) Benign essential hypertension: (5) Grade I diastolic dysfunction: Plan Acute posterior circulation stroke -With persistent dizziness, vertigo, nausea, complaints of unsteadiness on his feet -NIH stroke scale 1 -Status post tPA at 3:55 PM Plan -Monitor in ICU -tPA precautions -No blood draws -Neurochecks -NIH stroke scale -Aspiration precautions -Monitor mentation closely, if any significant change in mentation, will order head CT -Start aspirin 24 hours after tPA -Start statin -Cardiac echo -Treat if systolic blood pressure greater than 180 or diastolic greater than 105 -Telemetry monitoring -Hold Lovenox for DVT prophylaxis until 24 hours tPA, head CT within normal limits -Repeat head CT in the morning -Will consider MRI based on clinical progress -Neurology on consult -PT OT -Speech therapy eval -Right ear cerumen impaction -Low-dose sliding scale -IV fluids -Full code -Scd for DVT prophylaxis IV fluids Spoke to ER physician, spoke to patient, spoke to nursing staff Attestations 2 Medical Necessity Statement*: Patient requires hospitalization, inpatient, greater than 2 midnights for acute posterior circulation stroke, vertigo Coding Level of Care Code Critical Care >/= 30 minutes Critical care time (in minutes): 45 The high probability of a clinically significant, sudden or life threatening deterioration, as referenced in this documentation, required my full and direct attention, intervention and personal management. The critical care time shown is in addition to time spent performing any reported separately billable procedures and includes the following: [x] Data and vital sign review and interpretation [x ] Patient assessment, examination and intervention [x] Medication orders and management [x] Patient/Family updates as able [x] Care Coordination and Documentation. Diagnoses Acute ischemic multifocal posterior circulation stroke I63.539 Vertigo R42 Type 2 diabetes mellitus without complication, without long-term current use of insulin E11.9 Diabetes mellitus complication status: without complication Benign essential hypertension I10 Grade I diastolic dysfunction I51.9
[2024-08-04 17:23] LABS: Chol HDL Ratio 6.07 mg/dL (1.0-5.00); Cholesterol 164 mg/dL (0-200); HDL Cholesterol 27 mg/dL (60-100); Triglycerides 529 mg/dL (0-150)
[2024-08-04 17:39] LABS: LDL Cholesterol Direct 69 mg/dL (0-100)
[2024-08-04] MEDS: sodium chloride 0.9% 1,000 ML 75 ML IV (17:54)
[2024-08-04] MEDS: pantoprazole 40 mg SDV IVP (17:54)
[2024-08-04 19:10] LABS: Estmated Average Glucose 134; Hemoglobin A1C 6.3 % (4.0-6.0)
--- NOTE | 2024-08-04 19:17 | PC.NURSE ---
End of shift summary: Pt continues to have zero neuro deficits. NIH remains zero. Pt has complained of nausea, Zofran admin. He stated that helped. DUe to that he hasn't wanted to eat dinner. VSS. No urine output noted thus far.
[2024-08-04 21:16] LABS: Bilirubin Urine Negative (Negative); Blood Urine Negative (Negative); Glucose Urine UA Negative (Normal); Ketones Urine 1+ (Negative); Leukocyte Esterase Urine Negative (Negative); Nitrate Urine Negative (Negative); Protein Urine Negative (Negative); Urine Appearance Clear (CLEAR); Urine Color Yellow (Yellow)
[2024-08-04 21:18] LABS: Amphetamines Screen Urine Negative (Negative); Barbiturates Screen Urine Negative (Negative); Benzodiazepines Screen Urine Negative (Negative); Cocaine Screen Urine Negative (Negative); Opiate Screen Urine Negative (Negative); PCP Screen Urine Negative (Negative); THC Screen Urine Negative (Negative)
[2024-08-04 21:19] LABS: Add Urine Microscopic? YES; Bacteria Urine None Seen /hpf; RBC Urine 0-2 /hpf (0-2); Squamous Epithelial Cell Urine 0-5 /hpf (0-5); WBC Urine 0-5 /hpf (0-5)
[2024-08-04 21:20] LABS: Specific Gravity, Urine 1.054 (1.005-1.030)
[2024-08-04] MEDS: acetaminophen 325 mg Tablet 650 MG PO (23:10)
[2024-08-05] VITALS (56 sets, daily range): BP systolic 124–150; BP diastolic 60–92; PULSE 58–82; RESP 14–38; TEMP 36.6; O2SAT 90–98
[2024-08-05] MEDS: potassium chloride ER 20 mEq Tablet 40 MEQ PO ×2 (01:28→08:14)
[2024-08-05] MEDS: ondansetron 2 mg/ML SDV 2 mL 4 MG IVP (02:16)
[2024-08-05] MEDS: acetaminophen 325 mg Tablet 650 MG PO ×2 (05:13→21:36)
[2024-08-05] MEDS: sodium chloride 0.9% 1,000 ML 75 ML IV (05:44)
[2024-08-05] MEDS: magnesium oxide 400 mg tablet PO (08:14)
--- NOTE | 2024-08-05 10:45 | PM.PN ---
Subjective Subjective: Reason for follow-up: Clinical history and examination suggestive of posterior circulation stroke status post intravenous tenecteplase (TNKase) 08/04/2024 History of Present Illness Teddy Gayle is a 79 year old male with a history of coronary artery disease with stenosis of the left main coronary artery, diverticulitis, congestive heart failure, type 2 diabetes mellitus, obesity, essential hypertension. According to the patient's family, around 1 PM on 08/04/2024 the patient was sitting at home and contacted one of the family members via phone. According to the family member the patient was crying and had slurred speech. When the family arrived the patient was reported to be slumped over in a chair and was asked being seen right lower facial weakness/drooping with inability to respond associated with severe nausea and vomiting while holding a trash can. According to the family the patient was complaining of objective vertigo where everything was spinning around. EMS was contacted and the patient was brought to [facility] emergency department. Code stroke was initiated at 2:29 PM on 08/04/2024. Noncontrast head CT 08/04/2024 reported to revealed no acute findings CT angiogram of the head and neck were performed on 08/04/2024 reported to revealed no acute findings. NIH score = 1 (secondary to mild slurred speech). Point of contact glucose Accu-Chek 181 (normal equals 70-110) CBC and comprehensive metabolic panel revealed decreased potassium at 3.2 (normal equals 3.5-5.1) with elevated serum glucose 174 (normal 65-115) Other labs were unrevealing. On neurological examination 08/04/2024 the patient displayed nystagmus on upward gaze, and right lateral gaze and complaint of dizziness. Extraocular movements were intact. There was no obvious facial weakness, no visual loss and visual howell appear to be full via confrontation. There was no focal weakness. The possibility of posterior circulation stroke cannot be excluded. This was discussed with the patient and the patient's family. Possibility of intravenous tenecteplase administration for possible posterior circulation stroke were discussed with the patient and the patient's family. The patient's family as well as the patient were reluctant to undergo intravenous tenecteplase secondary to potential side effects that were discussed that can be associated with intravenous tenecteplase. The patient also stated that he had similar episode of dizziness 2 or 3 years ago and was evaluated in the emergency room and the symptoms resolved in several hours. The patient's family decided to have a conference with other family members prior to making a decision regarding intravenous tenecteplase. While the family was making a decision regarding intravenous tenecteplase while the patient was still in the acute intravenous thrombolytic window, the patient reported that his dizziness and nausea improved. Initially the patient rated the dizziness and vertigo a 10 on a scale of 1-10 with 10 being the most severe. On reevaluation approximately 5 to 10 minutes later the patient reported that the dizziness and vertigo had improved to a 5 on a scale of 1-10 with 10 being the most severe. The patient also reported that he has been experiencing right ear discomfort. On otoscopic evaluation the patient had earwax impaction in the right ear. Left ear appeared to be clear. Since the patient's family was reluctant and refused to give consent for intravenous thrombolytics (tenecteplase) and the patient reported improvement in his dizziness and vertigo and nausea and vomiting, and on exam examination the nystagmus also were improved, intravenous thrombolytics were not administered. The patient reported undergoing cardiac event monitoring and nuclear medicine stress test July 2024. The patient stated he is not aware of the results of the cardiac testing. At 3:55 PM on 08/04/2024 I received a phone call from the attending emergency room physician, Misti Malin MD that the patient and the patient's family changed their mind and wanted to sign consent to receive intravenous tenecteplase (TNKase). Therefore, intravenous tenecteplase (TNKase) was ordered and administered by the emergency room physician, Misti Malin MD. I recommended the patient be evaluated by ENT for right ear wax impaction and right ear discomfort as well as history of similar dizziness 2 to 3 years ago to rule out inner ear issues. The patient will be admitted for observation to observe for any worsening or recurrent symptoms of vertigo/dizziness. On 08/05/2024 the patient is still in the ICU bed #2. Patient reports he is doing well he denied any dizziness or vertigo this morning. On clinical examination patient did not reveal any obvious nystagmus and his neurological examination was nonfocal. NIH score = 0. The patient is preparing to eat his breakfast this morning. Drug allergies: Calcium channel blockers type reaction unknown Ciprofloxacin type reaction unknown Gabapentin which resulted in decreased heart rate to less than 40 Metformin type reaction unknown Fenofibrate which resulted in irregular heart rate Pravastatin which resulted in swelling Jardiance which resulted in muscle aches and pains Current medications: Aspirin 325 mg p.o. daily Coenzyme Q10 30 mg p.o. daily Lasix 40 mg p.o. twice daily Lisinopril 20 mg/hydrochlorothiazide 25 mg p.o. twice daily Magnesium oxide 400 mg p.o. daily Nebivolol 40 mg p.o. daily Protonix 40 mg p.o. daily Potassium chloride 10 mEq to be given as directed Tadalafil 10 mg p.o. daily, as needed Vitamin B complex 1 p.o. daily Past medical history: Vertigo 2 to 3 years ago Hypokalemia Type 2 diabetes mellitus Essential hypertension Coronary artery disease Congestive heart failure Obesity Diverticulitis Erectile dysfunction Hypertriglyceridemia Gastroesophageal reflux disease Mitral valve regurgitation Neuropathy Habits: None the patient denied smoking Family history: Negative for strokes Review of Systems General: Reports: 10 or mor e systems reviewed and unremarkable except in HPI and below Vitals/I&O/Wt Last Vital Signs Temp 97.9 F 08/05/24 05:15 Pulse 70 08/05/24 08:15 Resp 18 08/05/24 06:30 BP 140/71 08/05/24 08:00 Pulse Ox 92 08/05/24 08:15 O2 Del Method Room Air 08/05/24 00:00 08/04/24 08/05/24 08/05/24 22:59 06:59 14:59 Intake Total 1050 / 1050 887.5 / 1937.5 240 / 240 Output Total 500 / 500 400 / 900 150 / 150 Balance 550 / 550 487.5 / 1037.5 90 / 90 Weight last 48 hrs Weight 286 lb 9.615 oz Weight 281 lb 8.485 oz Weight 300 lb Weight 270 lb Physical Exam Narrative: The patient is alert and oriented x 3. Speech revealed some mild dysarthria. Patient follows commands. Pupils 4 mm round reactive light and accommodation. Extraocular movements intact. There were no nystagmus during extraocular movement testing. Cranial nerves II through XII were intact without obvious facial weakness. Visual howell appear to be full via confrontation. Motor testing 5/5 bilaterally. There was no drift. Deep tendon reflexes trace to 1+ bilaterally. Plantar responses flexor bilaterally. There was no clonus. Sensory examination was intact to touch. There was no extinction on double sensory stimulation. Plantar responses flexor bilaterally. Throat clear. Lungs clear. Heart regular rhythm and rate. Extremities were negative for cyanosis. Data 08/04/24 14:34 08/04/24 14:34 A&P Assessment and plan (1) Acute ischemic multifocal posterior circulation stroke: Impression: 1. Acute onset of objective vertigo at 1 PM on 08/04/2024 associated with nausea and vomiting and reported slurred speech with right lower facial drooping and decreased level conscious. In the emergency room at [facility] room #14 the patient reported objective vertigo with intermittent nausea and vomiting. Clinical examination revealed nystagmus on upward gaze and right lateral gaze but no obvious facial weakness and mild slurred speech. The patient's symptoms improved in the emergency room. But, since the possibility of posterior circulation stroke could not be excluded, the patient and patient's family initially refused to sign the consent for intravenous thrombolytics but later gave consent for intravenous thrombolytics (tenecteplase). I was contacted by the [facility] emergency department physician, Misti Malin MD. regarding the patient and the patient's family decision for the patient to receive intravenous thrombolytics (tenecteplase), nystagmus and objective vertigo, nausea and vomiting resolved since administration of intravenous tenecteplase 08/04/2024 with NIH score = 0 on 08/05/2024. 2. Right ear wax impaction and complaints of right ear discomfort Plan: 1. Recommend obtaining noncontrast head MRI to assess for posterior circulation stroke 1a. Follow post intravenous tenecteplase orders per NIH stroke protocol 2. Repeat noncontrast head CT 08/05/2024 3. Recommend occupational therapy, physical therapy and speech therapy consult 4. Give patient and patient's family stroke pamphlet 5. Evaluate repeat noncontrast head CT as well as noncontrast head MRI prior to patient receiving any aspirin or other antiplatelet medication or any other antithrombolytics 6. Vital signs and neurochecks per NIH stroke protocol/ICU protocol 7. Note: Patient's reported allergies to statins 8. Recommend ENT evaluation for right ear wax impaction and right ear discomfort and vertigo 9. If repeat noncontrast head CT and noncontrast head MRI negative, patient stable from neurological standpoint for discharge planning 10. Have patient follow-up with cardiology regarding nuclear medicine stress test and cardiac event monitoring performed July 2024. Attestations Medical Necessity Statement*: The patient was evaluated by neurology for clinical history and examination suggestive of posterior circulation stroke status post intravenous tenecteplase 08/04/2024 Coding Level of Care Code 57094 Diagnoses Acute ischemic multifocal posterior circulation stroke I63.539
--- NOTE | 2024-08-05 12:37 | P.PN_ITS ---
Subjective 2 Subjective: Patient was seen this morning, he is alert oriented x 3, following all commands, denies any dizziness,, no lightheadedness, nursing staff did get him up to the side of the bed, denies feeling unsteady on his feet, no visual deficits, no slurring of his words, no facial droop, no focal weakness, no focal paresthesias,, no headache, no blurry vision Vitals/I&O/Wt Last Vital Signs Temp 97.9 F 08/05/24 05:15 Pulse 68 08/05/24 12:00 Resp 22 H 08/05/24 12:00 BP 127/81 08/05/24 12:00 Pulse Ox 93 08/05/24 12:00 O2 Del Method Room Air 08/05/24 00:00 08/04/24 08/05/24 08/05/24 22:59 06:59 14:59 Intake Total 1050 / 1050 887.5 / 1937.5 240 / 240 Output Total 500 / 500 400 / 900 150 / 150 Balance 550 / 550 487.5 / 1037.5 90 / 90 Weight last 48 hrs Weight 130 kg Weight 127.7 kg Weight 136.078 kg Weight 122.47 kg Physical Exam 2 Const: COMMON NORMALS: no acute distress and patient oriented x3 Resp: COMMON NORMALS: normal respiratory effort, No retractions, No use of accessory muscles and clear to auscultation bilaterally AUSCULTATION: clear to auscultation bilaterally Cardio: COMMON NORMALS: regular rate, regular rhythm, S1 normal heart sound present and S2 normal heart sound present RATE: regular rate RHYTHM: r egular rhythm HEART SOUNDS: S1 normal heart sound present and S2 normal heart sound present GI: COMMON NORMALS: Normal to inspection, nondistended, normoactive bowel sounds present and non-tender Extremity: COMMON NORMALS: no pedal edema Neuro: COMMON NORMALS: patient oriented x3, CN's II-XII intact bilaterally, moves all extremities and no focal motor deficits Psych: COMMON NORMALS: mental status grossly normal Data 08/04/24 14:34 08/04/24 14:34 A&P Assessment and plan (1) Acute ischemic multifocal posterior circulation stroke: (2) Vertigo: (3) Type 2 diabetes mellitus, without long-term current use of insulin: Qualifiers: Diabetes mellitus complication status: without complication Qualified Code(s): E11.9 - Type 2 diabetes mellitus without complications (4) Benign essential hypertension: (5) Grade I diastolic dysfunction: Plan Acute posterior circulation stroke -With persistent dizziness, vertigo, nausea, complaints of unsteadiness on his feet, dysarthria -NIH stroke scale 1 -Status post tPA at 3:55 PM 08/05/2024 -Currently asymptomatic, no dizziness, no vertigo, no nausea, no unsteadiness, no dysarthria Plan -Monitor in ICU -tPA precautions -Blood draw at 4 PM -Neurochecks -NIH stroke scale -Aspiration precautions -Monitor mentation closely, if any significant change in mentation, will order head CT -Start aspirin 24 hours after tPA -statin -Cardiac echo -Treat if systolic blood pressure greater than 180 or diastolic greater than 105 -Telemetry monitoring -Hold Lovenox for DVT prophylaxis until 24 hours tPA, head CT within normal limits -Repeat head CT -mri of the brain ordered -Neurology on consult -PT OT -Speech therapy eval -Right ear cerumen impaction -Low-dose sliding scale -IV fluids -Full code -Scd for DVT prophylaxis Spoke to neurology, spoke to patient, spoke to nursing staff, plan on doing blood work at 4 PM, 24 hours after tPA, CT head 24 hours after tPA, resume aspirin, Lovenox [address] head within normal limits Attestations 2 Medical Necessity Statement*: Patient requires hospitalization, for acute posterior circulation stroke, status post tPA Diagnoses Acute ischemic multifocal posterior circulation stroke I63.539 Vertigo R42 Type 2 diabetes mellitus without complication, without long-term current use of insulin E11.9 Diabetes mellitus complication status: without complication Benign essential hypertension I10 Grade I diastolic dysfunction I51.9
--- NOTE | 2024-08-05 15:00 | CTR_ITS ---
PROCEDURE INFORMATION: Exam: CT Head Without Contrast Exam date and time: 08/05/2024 4:20 PM Age: 79 years old Clinical indication: Condition or disease; Other: CVA S/P tka; Additional info: CVA S/P tpa TECHNIQUE: Imaging protocol: Computed tomography of the head without contrast. Radiation optimization: All CT scans at this facility use at least one of these dose optimization techniques: automated exposure control; mA and/or kV adjustment per patient size (includes targeted exams where dose is matched to clinical indication); or iterative reconstruction. COMPARISON: CT angio headneck* [id number] 08/04/2024 3:37 PM RADIATION DOSE METRICS: Total DLP (mGy-cm): 1145.98 FINDINGS: Brain: No acute intracranial hemorrhage. No confluent lobar infarct. No mass effect. Cerebral ventricles: The ventricles and sulci are normal in size and shape for the patient's stated age. Paranasal sinuses: No fluid levels. Mastoid air cells: Visualized mastoid air cells are well aerated. Bones: No acute calvarial fracture. Soft tissues: Visualized soft tissues are unremarkable. CT/CT head wo con* [id number] IMPRESSION: No acute intracranial abnormality. If symptoms persist, consider further evaluation with MRI, if MRI is clinically safe to obtain.
[2024-08-05] MEDS: pantoprazole 40 mg SDV IVP (16:11)
[2024-08-05 17:04] LABS: Basophils # 0.1 10^3/uL (0.0-0.1); Basophils % 0.6 %; Eosinophils # 0.1 10^3/uL (0.0-0.8); Eosinophils % 0.6 %; Lymphocytes # 2.5 10^3/uL (0.8-4.8); Lymphocytes % 29.4 %; Mean Corpuscular HGB Conc 32.6 g/dL (30-55); Mean Corpuscular Volume 98.2 fl (82-101); Mean Platelet Volume 10.6 fL (7.4-10.4); Monocytes # 0.7 10^3/uL (0.2-0.9); Monocytes % 8.4 %; Neutrophils # 5.22 10^3/uL (1.8-7.7); Neutrophils % 60.5 %; Nucleated Red Blood Cells % 0 %; Platelet Count 194 10^3/cmm (157-399); Red Blood Count 3.97 10^6/uL (3.85-5.65); Red Cell Distribution Width 13.4 % (12.1-15.1); White Blood Count 8.61 10^3/uL (3.29-11.43)
[2024-08-05 17:24] LABS: Fibrinogen 324 mg/dL (174-498)
[2024-08-05 17:37] LABS: Anion Gap 13.5 (5-19); Blood Urea Nitrogen 14 mg/dL (8-23); Calcium 8.1 mg/dL (8.5-10.5); Carbon Dioxide 24 mmol/L (22-29); Chloride 109 mmol/L (98-107); Glucose 133 mg/dL (65-115); Osmolality Calculated 298 mOsm/kg (285-295); Potassium 3.5 mmol/L (3.5-5.1); Sodium 143 mmol/L (136-145)
[2024-08-05] MEDS: atorvastatin 40 mg Tablet PO (21:36)
[2024-08-05] MEDS: aspirin 81 mg EC Tablet PO (21:36)
[2024-08-05] MEDS: enoxaparin 40 mg/0.4 mL Syringe SUBCUT (21:36)
[2024-08-06] VITALS: BP 107/55; PULSE 60; RESP 20; TEMP 36.8; O2SAT 93
[2024-08-06 04:00] VITALS: BP 120/59; PULSE 58; RESP 20; TEMP 36.8; O2SAT 94
[2024-08-06 06:00] VITALS: PULSE 60
[2024-08-06 06:01] LABS: Basophils # 0.1 10^3/uL (0.0-0.1); Basophils % 1.1 %; Eosinophils # 0.1 10^3/uL (0.0-0.8); Eosinophils % 1.7 %; Lymphocytes # 3.1 10^3/uL (0.8-4.8); Lymphocytes % 37.7 %; Mean Corpuscular HGB Conc 32.1 g/dL (30-55); Mean Corpuscular Hemoglobin 34.1 pg (27-33); Mean Corpuscular Volume 106.1 fl (82-101); Mean Platelet Volume 10.5 fL (7.4-10.4); Monocytes # 0.8 10^3/uL (0.2-0.9); Monocytes % 9.4 %; Neutrophils # 4.02 10^3/uL (1.8-7.7); Neutrophils % 49.6 %; Nucleated Red Blood Cells % 0 %; Platelet Count 189 10^3/cmm (157-399); Red Blood Count 3.58 10^6/uL (3.85-5.65); Red Cell Distribution Width 13.5 % (12.1-15.1); White Blood Count 8.11 10^3/uL (3.29-11.43)
[2024-08-06 07:22] VITALS: BP 123/67; PULSE 61; RESP 15; TEMP 36.8; O2SAT 95
[2024-08-06 10:00] VITALS: BP 123/67; PULSE 61; RESP 15; TEMP 36.8
--- NOTE | 2024-08-06 10:37 | P.DS_ITS ---
Discharge Providers Date of Admission: 08/04/24 15:40 Date of Discharge: August 06, 2024 Attending Provider at Admission: Darion Ware MD Attending Provider at Discharge: Darion Ware MD Primary Care Provider: Maryan Winslow NP Diagnoses at Discharge Discharge Diagnosis (1) Acute ischemic multifocal posterior circulation stroke: Status: Acute (2) Vertigo: Status: Acute (3) Type 2 diabetes mellitus, without long-term current use of insulin: Status: Acute Qualifiers: Diabetes mellitus complication status: without complication Qualified Code(s): E11.9 - Type 2 diabetes mellitus without complications (4) Benign essential hypertension: Status: Chronic (5) Grade I diastolic dysfunction: Status: Chronic Reason for Visit Reason for Visit: n/v; weakness Hospital Course Hospital Course Teddy Gayle is a 79 year old male with a past medical history of type 2 diabetes mellitus, obesity, hypertriglyceridemia, GERD, hypertension, who presen [facility] due to dizziness, vertigo, unsteadiness on his feet, that started about 1 PM today. Currently patient is alert oriented x 3, following all commands, has mild dysarthria, no facial droop, can follow commands, he does tend to neglect the right side during my discussion. 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 He tells me that he woke up this morning, nothing out of the ordinary, he had breakfast, he went to the living room, to watch football. At about 1-1 30 p.m., he noticed severe onset dizziness, vertigo, feeling nauseous, he got up, he had to use the wall to ambulate as he was very unsteady on his feet, no other focal neurologic deficits, no other focal weakness, no other paresthesias reported. He was able to call his daughter, who came over, and given his symptomatology, and a 1. During my evaluation, his complaint is dizziness, vertigo, feels nauseous, does have mild dysarthria, during my discussion with him, he does not make good eye contact as I was standing on the right side, was neglecting the right side, although visual howell to my examination are intact, no significant saccadic eye movements, denies a prior history of benign positional vertigo, denies any preceding chest palpitations. Denies taking any blood thinners at home. On arrival patient was a stroke alert, NIH stroke scale 1, concern for posterior circulation stroke, last known well normal at 1330. Continues to have symptomatology of dizziness, vertigo, feeling nauseous. Initially patient had declined, TNKase. I confronted patient about this, discussed him declining TNKase. He tells me that if he wants to go ahead now and proceed. I discussed with him what TNKase was, the reason its given, the importance of timeframe and when its given in timing of a stroke. I discussed the risks of benefits of TNKase, risks including but not limited to hemorrhagic conversion, intracranial bleeding,. He tells that he just did not understand what the medication did. After discussing the risk and benefits of TNKase, shared decision making, he voiced understanding, all questions answered, agreed to proceed. This was roughly at 3:55 PM, he was still within the window. I discussed my discussion with the ER provider, who spoke to ER provider, plan on proceeding with TNKase. I reexamined patient, and again confirmed with him that he wants to go ahead and proceed with TNKase, he wants to go ahead and proceed after discussing the risk and benefits, he voiced understanding, all questions answered, agreed to proceed. Plan to admit to ICU, it, for posterior circulation stroke, he will get TNKase. He was reexamined, receiving TNKase, blood pressure 116/72, pulse 78, respiratory rate 22, temperature 97.5, 95% on room air, daughter at bedside, blood sugar 181. Patient was admitted to [facility] for acute posterior circulation stroke, with dizziness, vertigo, nausea, unsteadiness, dysarthria, and a stroke scale 1, status post tPA, monitored in ICU. Overall patient's clinical condition improved, his symptoms resolved, relatively asymptomatic, able to be ambulatory on his own, no reported dizziness, no reported unsteadiness, repeat head CT no acute bleed, he was moved to medical floors monitor for 24 hours. On discharge she will be discharged on aspirin 81 mg daily Plavix 75 mg daily for 21 days, atorvastatin, with a close follow-up with neurology in 2 weeks. MRI was ordered as inpatient however patient declined due to severe claustrophobia we will have him follow-up with neurology as outpatient for consideration of open MRI. Given his posterior circulation stroke, we discussed the importance of slowly lowering his blood pressures. Discharged with instructions as below - Starting tomorrow resume nebivolol 20 mg daily -Monitor your blood pressure daily -Starting tomorrow resume Lasix 40 mg p.o. daily with potassium 20 mill equivalents daily -On 08/08/2024 -Resume your lisinopril-hydrochlorothiazide 20-25 at 1 tablet daily -Please see your primary care provider on Monday depending on your blood pressure we might have to increase your blood pressure medication back to your home dose but the goal is to slowly lower your blood pressure rather than a rapid reduction of blood pressure to decrease your risk of recurrent stroke -If more blood pressure medications are needed in the near future I would recommend increasing the nebivolol to 20 mg twice daily -I would not recommend increasing the lisinopril-hydrochlorothiazide 20-25, due to increased risk of side effects -Take aspirin 81 mg daily -Take atorvastatin 40 mg daily -Take Plavix 75 mg daily, stop after 21 days -For your prediabetes, please discuss with your primary care provider about medication such as metformin or Jardiance which will help with your cardiovascular health, decrease your risk of strokes -I would avoid Cialis for 2 weeks -If you have any recurrent strokelike symptoms please go to emergency room On 08/06/2024, patient was adamant about going home, he did not get sleep during the night, I do not have his results from his echocardiogram results back, I did also review his event monitor results on 07/01/2024, no A-fib events on th at cardiac event monitor Follow-up with cardiology as outpatient For his right cerumen impaction follow-up with ENT or primary care Patient was advised if he were to have any recurrent strokelike symptoms please go to the emergency room Physical Exam Const: COMMON NORMALS: no acute distress and patient oriented x3 Resp: COMMON NORMALS: normal respiratory effort, No retractions, No use of accessory muscles and clear to auscultation bilaterally AUSCULTATION: clear to auscultation bilaterally Cardio: COMMON NORMALS: regular rate, regular rhythm, S1 normal heart sound present and S2 normal heart sound present RATE: regular rate RHYTHM: regular rhythm HEART SOUNDS: S1 normal heart sound present and S2 normal heart sound present GI: COMMON NORMALS: Normal to inspection, nondistended, normoactive bowel sounds present and non-tender Extremity: COMMON NORMALS: no pedal edema Neuro: COMMON NORMALS: patient oriented x3 Psych: COMMON NORMALS: mental status grossly normal Discharge Data Studies Completed and Pending Completed Studies During Hospitalization Category Date Time Status CT head thrombolytic [id number] Stat Cat Scan 08/04/24 14:[address] head wo con* [id number] Routine Cat Scan 08/05/24 15:00 Completed CTA head neck [CT angio headneck* [id number]] Stat Cat Scan 08/04/24 14:32 Completed Pending at discharge Category Date Time Status Complete Blood Count w/Auto AM LABS Lab 08/07/24 04:00 Ordered Complete Blood Count w/Auto AM LABS Lab 08/08/24 04:00 Ordered Comprehensive Metabolic Panel AM LABS Lab 08/07/24 04:00 Ordered Comprehensive Metabolic Panel AM LABS Lab 08/08/24 04:00 Ordered Comprehensive Metabolic Panel Routine Lab 08/06/24 06:12 Ordered CV. echo complete* [id number] Routine Ultrasound 08/05/24 17:02 Taken Radiology Impressions Head/Neck CTA 08/04/24 14:32 IMPRESSION: No large vessel stenosis or occlusion. IMPRESSION: No stenosis or occlusion. REFERENCES: NASCET CRITERIA. The degree of stenosis in the cervical segment of the internal carotid artery is based on NASCET criteria. Normal is no stenosis. Mild is less than 50% stenosis. Moderate is 50-69% stenosis. Severe is 70% to 99% stenosis. Total occlusion is no detectable patent lumen. Head CT 08/05/24 15:00 IMPRESSION: No acute intracranial abnormality. If symptoms persist, consider further evaluation with MRI, if MRI is clinically safe to obtain. Laboratory Results WBC 8.11 10^3/uL (3.29-11.43) 08/06/24 04:35 RBC 3.58 10^6/uL (3.85-5.65) L 08/06/24 04:35 Hgb 12.20 g/dL (11.27-16.99) 11/05/24 04:35 Hct 38.0 % (37-53) 08/06/24 04:35 MCV 106.1 fl (82-101) H D 08/06/24 04:35 MCH 34.1 pg (27-33) H 08/06/24 04:35 MCHC 32.1 g/dL (30-55) 08/06/24 04:35 RDW 13.5 % (12.1-15.1) 08/06/24 04:35 Plt Count 189 10^3/cmm (157-399) 08/06/24 04:35 MPV 10.5 fL (7.4-10.4) H 08/06/24 04:35 Neut % (Auto) 49.6 % 08/06/24 04:35 Lymph % (Auto) 37.7 % 08/06/24 04:35 [place] % (Auto) 9.4 % 08/06/24 04:35 Eos % (Auto) 1.7 % 08/06/24 04:35 Baso % (Auto) 1.1 % 08/06/24 04:35 Neut # (Auto) 4.02 10^3/uL (1.8-7.7) 08/06/24 04:35 Lymph # (Auto) 3.1 10^3/uL (0.8-4.8) 08/06/24 04:35 [place] # (Auto) 0.8 10^3/uL (0.2-0.9) 08/06/24 04:35 Eos # (Auto) 0.1 10^3/uL (0.0-0.8) 08/06/24 04:35 Baso # (Auto) 0.1 10^3/uL (0.0-0.1) 08/06/24 04:35 Nucleated RBC % (auto) 0 % 08/06/24 04:35 Nucleated RBCs # 0.0 /100WBC 08/06/24 04:35 PT 13.60 SECONDS (12.1-14.9) 08/04/24 14:34 INR 1.01 (0.8-1.2) 08/04/24 14:34 APTT 27.6 SECONDS (23.9-36.7) 08/04/24 14:34 Fibrinogen 324 mg/dL (174-498) 08/05/24 16:27 Sodium Cancelled 08/06/24 04:35 Potassium Cancelled 08/06/24 04:35 Chloride Cancelled 08/06/24 04:35 Carbon Dioxide Cancelled 08/06/24 04:35 Anion Gap Cancelled 08/06/24 04:35 BUN Cancelled 08/06/24 04:35 Creatinine Cancelled 08/06/24 04:35 GFR Calculation Cancelled 08/06/24 04:35 Glucose Cancelled 08/06/24 04:35 POC Glucose 181 mg/dL (70-110) H 08/04/24 14:32 Estimat Average Glucose 134 08/04/24 14:34 Hemoglobin A1c 6.3 % (4.0-6.0) H 08/04/24 14:34 Calculated Osmolality Cancelled 08/06/24 04:35 Calcium Cancelled 08/06/24 04:35 Total Bilirubin Cancelled 08/06/24 04:35 AST Cancelled 08/06/24 04:35 ALT Cancelled 08/06/24 04:35 Alkaline Phosphatase Cancelled 08/06/24 04:35 Total Protein Cancelled 08/06/24 04:35 Albumin Cancelled 08/06/24 04:35 Globulin Cancelled 08/06/24 04:35 Triglycerides 529 mg/dL (0-150) H 08/04/24 14:34 Cholesterol 164 mg/dL (0-200) 08/04/24 14:34 LDL Cholesterol Direct 69 mg/dL (0-100) 08/04/24 14:34 LDL Cholesterol, Calc Not Reportable 08/04/24 14:34 HDL Cholesterol 27 mg/dL (60-100) L 08/04/24 14:34 LDL/HDL Ratio Not Reportable 08/04/24 14:34 Cholesterol/HDL Ratio 6.07 mg/dL (1.0-5.00) H 08/04/24 14:34 Lipase 37 U/L (13-60) 08/04/24 14:34 Urine Color Yellow (Yellow) 08/04/24 21:00 Urine Appearance Clear (CLEAR) 08/04/24 21:00 Urine pH 6.0 (5-7) 08/04/24 21:00 Ur Specific [place] 1.054 (1.005-1.030) H 08/04/24 21:00 Urine Protein Negative (Negative) 08/04/24 21:00 Urine Glucose (UA) Negative (Normal) 08/04/24 21:00 Urine Ketones 1+ (Negative) H 08/04/24 21:00 Urine Blood Negative (Negative) 08/04/24 21:00 Urine Nitrate Negative (Negative) 08/04/24 21:00 Urine Bilirubin Negative (Negative) 08/04/24 21:00 Urine Urobilinogen 1.0 mg/dL (Negative) 08/04/24 21:00 Ur Leukocyte Esterase Negative (Negative) 08/04/24 21:00 Urine RBC 0-2 /hpf (0-2) 08/04/24 21:00 Urine WBC 0-5 /hpf (0-5) 08/04/24 21:00 Ur Squamous Epith Cells 0-5 /hpf (0-5) 08/04/24 21:00 Amorphous Sediment Not Reportable 08/04/24 21:00 Urine Bacteria None seen /hpf (NONE) 08/04/24 21:00 Hyaline Casts 0.40 /lpf 08/04/24 21:00 Urine Opiates Screen Negative ng/mL (Negative) 08/04/24 21:00 Ur Barbiturates Screen Negative ng/mL (Negative) 08/04/24 21:00 Ur Phencyclidine Scrn Negative ng/mL (Negative) 08/04/24 21:00 Ur Amphetamines Screen Negative ng/mL (Negative) 08/04/24 21:00 U Benzodiazepines Scrn Negative ng/mL (Negative) 08/04/24 21:00 Urine Cocaine Screen Negative ng/mL (Negative) 08/04/24 21:00 U Marijuana (THC) Screen Negative ng/mL (Negative) 08/04/24 21:00 Ethyl Alcohol < 10 mg/dL (0-10) 08/04/24 14:34 Vitals Last Vital Signs Temp 98.2 F 08/06/24 07:22 Pulse 61 08/06/24 07:22 Resp 15 08/06/24 07:22 BP 123/67 08/06/24 07:22 Pulse Ox 95 08/06/24 07:22 O2 Del Method Room Air 08/06/24 07:22 Discharge Plan Discharge Patient Disposition: Home Condition: Stable Prescriptions: New atorvastatin 40 mg Tablet 40 mg PO BEDTIME 30 Days Qty: 30 0RF aspirin 81 mg Tablet,Delayed Release (Dr/Ec) 81 mg PO Q24H 30 Days Qty: 30 0RF clopidogrel [Plavix] 75 mg tablet 75 mg PO DAILY 21 Days Qty: 21 0RF Continued magnesium oxide 400 mg magnesium capsule 400 mg PO DAILY Qty: 90 3RF pantoprazole 40 mg tablet,delayed release (DR/EC) 40 mg PO DAILY vitamin B complex Tablet 1 tab PO DAILY coenzyme Q10 [CoQ-10] 30 mg Capsule 30 mg PO DAILY Discontinued aspirin 325 mg tablet 325 mg PO DAILY furosemide 40 mg tablet 40 mg PO BID Qty: 180 1RF lisinopril-hydrochlorothiazide 20-25 mg tablet 1 tab PO BID Qty: 180 3RF nebivolol 20 mg tablet 40 mg PO DAILY Qty: 180 2RF potassium chloride 10 mEq tablet,ER particles/crystals See Rx Instructions .ROUTE .COMPLEX Qty: 90 3RF Dose Instruction: TAKE 1 TABLET BY MOUTH ONCE DAILY WITH 20MEQ FOR A TOTAL DOSE OF 30MEQ Rx Instructions: TAKE 1 TABLET BY MOUTH ONCE DAILY WITH 20MEQ FOR A TOTAL DOSE OF 30MEQ tadalafil [Cialis] 10 mg tablet 10 mg PO DAILY PRN (Reason: sexual activity) Qty: 15 1RF Rx Instructions: admin appr 30min before sexual activity; do not use more than 1 dose per 24hrs 340 B potassium chloride 20 mEq tablet extended release See Rx Instructions .ROUTE .COMPLEX Rx Instructions: TAKE 1 TABLET BY MOUTH ONCE DAILY WITH 10MEQ FOR A TOTAL DOSE OF 30MEQ Discharge Orders: Discharge Order (Routine); Ordered 08/06/24 Ordered By: Darion Ware Referrals: Maryan Winslow NP [Primary Care Provider] - 1-3 days Brayden Quach MD [Physician] - 2 weeks Uri Borges MD [Physician] - 2 weeks (right ear impaction ) Justin Rogel M.D [Physician] - 4-7 days Discharge Diet: Cardiac Discharge Activity: Resume usual activity Patient Instructions: Opioid Safety Activity Restrictions/Additional Instructions: - Starting tomorrow resume nebivolol 20 mg daily -Monitor your blood pressure daily -Starting tomorrow resume Lasix 40 mg p.o. daily with potassium 20 mill equivalents daily -On 08/08/2024 -Resume your lisinopril-hydrochlorothiazide 20-25 at 1 tablet daily -Please see your primary care provider on Monday depending on your blood pressure we might have to increase your blood pressure medication back to your home dose but the goal is to slowly lower your blood pressure rather than a rapid reduction of blood pressure to decrease your risk of recurrent stroke -If more blood pressure medications are needed in the near future I would recommend increasing the nebivolol to 20 mg twice daily -I would not recommend increasing the lisinopril-hydrochlorothiazide 20-25, due to increased risk of side effects -Take aspirin 81 mg daily -Take atorvastatin 40 mg daily -Take Plavix 75 mg daily, stop after 21 days -For your prediabetes, please discuss with your primary care provider about medication such as metformin or Jardiance which will help with your cardiovascular health, decrease your risk of strokes -I would avoid Cialis for 2 weeks -If you have any recurrent strokelike symptoms please go to emergency room -Do not used any NSAIDs Discharge Attestations Time Spent in Discharge Care*: greater than 30 min Quality Metrics Clinical Quality Measures [ Cerebrovascular Accident { Contraindication to Antithrombotic: None; antithrombotic prescribed; Contraindication to Anticoagulation: Overlap treatment not indicated; Contraindication to Statin: None; Statin prescribed; Contraindication to tPA: None; TPA given;}] Coding Level of Care Code 21693 Total time (in minutes) for Discharge: 45 Diagnoses Acute ischemic multifocal posterior circulation stroke I63.539 Vertigo R42 Type 2 diabetes mellitus without complication, without long-term current use of insulin E11.9 Diabetes mellitus complication status: without complication Benign essential hypertension I10 Grade I diastolic dysfunction I51.9
[2024-08-06 11:31] VITALS: BP 123/67; PULSE 61; RESP 15; TEMP 36.8; O2SAT 95
--- NOTE | 2024-08-06 11:34 | PC.NURSE ---
Discharge Note Patient discharged to home via private vehicle accompanied by daughter. Discharge instructions reviewed with patient and/or digital media representative. Mobile pharmacy medications and/or prescriptions provided. Belongings/home medications returned.
--- NOTE | 2024-08-06 12:02 | PM.PN ---
Subjective Subjective: Reason for follow-up: Clinical history and examination suggestive of posterior circulation stroke status post intravenous tenecteplase (TNKase) 08/04/2024 History of Present Illness Teddy Gayle is a 79 year old male with a history of coronary artery disease with stenosis of the left main coronary artery, diverticulitis, congestive heart failure, type 2 diabetes mellitus, obesity, essential hypertension. According to the patient's family, around 1 PM on 08/04/2024 the patient was sitting at home and contacted one of the family members via phone. According to the family member the patient was crying and had slurred speech. When the family arrived the patient was reported to be slumped over in a chair and was asked being seen right lower facial weakness/drooping with inability to respond associated with severe nausea and vomiting while holding a trash can. According to the family the patient was complaining of objective vertigo where everything was spinning around. EMS was contacted and the patient was brought to [facility] emergency department. Code stroke was initiated at 2:29 PM on 08/04/2024. Noncontrast head CT 08/04/2024 reported to revealed no acute findings CT angiogram of the head and neck were performed on 08/04/2024 reported to revealed no acute findings. NIH score = 1 (secondary to mild slurred speech). Point of contact glucose Accu-Chek 181 (normal equals 70-110) CBC and comprehensive metabolic panel revealed decreased potassium at 3.2 (normal equals 3.5-5.1) with elevated serum glucose 174 (normal 65-115) Other labs were unrevealing. On neurological examination 08/04/2024 the patient displayed nystagmus on upward gaze, and right lateral gaze and complaint of dizziness. Extraocular movements were intact. There was no obvious facial weakness, no visual loss and visual howell appear to be full via confrontation. There was no focal weakness. The possibility of posterior circulation stroke cannot be excluded. This was discussed with the patient and the patient's family. Possibility of intravenous tenecteplase administration for possible posterior circulation stroke were discussed with the patient and the patient's family. The patient's family as well as the patient were reluctant to undergo intravenous tenecteplase secondary to potential side effects that were discussed that can be associated with intravenous tenecteplase. The patient also stated that he had similar episode of dizziness 2 or 3 years ago and was evaluated in the emergency room and the symptoms resolved in several hours. The patient's family decided to have a conference with other family members prior to making a decision regarding intravenous tenecteplase. While the family was making a decision regarding intravenous tenecteplase while the patient was still in the acute intravenous thrombolytic window, the patient reported that his dizziness and nausea improved. Initially the patient rated the dizziness and vertigo a 10 on a scale of 1-10 with 10 being the most severe. On reevaluation approximately 5 to 10 minutes later the patient reported that the dizziness and vertigo had improved to a 5 on a scale of 1-10 with 10 being the most severe. The patient also reported that he has been experiencing right ear discomfort. On otoscopic evaluation the patient had earwax impaction in the right ear. Left ear appeared to be clear. Since the patient's family was reluctant and refused to give consent for intravenous thrombolytics (tenecteplase) and the patient reported improvement in his dizziness and vertigo and nausea and vomiting, and on exam examination the nystagmus also were improved, intravenous thrombolytics were not administered. The patient reported undergoing cardiac event monitoring and nuclear medicine stress test July 2024. The patient stated he is not aware of the results of the cardiac testing. At 3:55 PM on 08/04/2024 I received a phone call from the attending emergency room physician, Misti Malin MD that the patient and the patient's family changed their mind and wanted to sign consent to receive intravenous tenecteplase (TNKase). Therefore, intravenous tenecteplase (TNKase) was ordered and administered by the emergency room physician, Misti Malin MD. I recommended the patient be evaluated by ENT for right ear wax impaction and right ear discomfort as well as history of similar dizziness 2 to 3 years ago to rule out inner ear issues. The patient will be admitted for observation to observe for any worsening or recurrent symptoms of vertigo/dizziness. On 08/05/2024 the patient is still in the ICU bed #2. Patient reports he is doing well he denied any dizziness or vertigo this morning. On clinical examination patient did not reveal any obvious nystagmus and his neurological examination was nonfocal. NIH score = 0. The patient is preparing to eat his breakfast on 08/05/2024. For on 08/06/2024 the patient was without complaints. He was sitting in the chair next to his bed patient was without complaints of dizziness or vertigo and stated he is doing well since receiving the intravenous tenecteplase. Drug allergies: Calcium channel blockers type reaction unknown Ciprofloxacin type reaction unknown Gabapentin which resulted in decreased heart rate to less than 40 Metformin type reaction unknown Fenofibrate which resulted in irregular heart rate Pravastatin which resulted in swelling Jardiance which resulted in muscle aches and pains Current medications: Aspirin 325 mg p.o. daily Coenzyme Q10 30 mg p.o. daily Lasix 40 mg p.o. twice daily Lisinopril 20 mg/hydrochlorothiazide 25 mg p.o. twice daily Magnesium oxide 400 mg p.o. daily Nebivolol 40 mg p.o. daily Protonix 40 mg p.o. daily Potassium chloride 10 mEq to be given as directed Tadalafil 10 mg p.o. daily, as needed Vitamin B complex 1 p.o. daily Past medical history: Vertigo 2 to 3 years ago Hypokalemia Type 2 diabetes mellitus Essential hypertension Coronary artery disease Congestive heart failure Obesity Diverticulitis Erectile dysfunction Hypertriglyceridemia Gastroesophageal reflux disease Mitral valve regurgitation Neuropathy Habits: None the patient denied smoking Family history: Negative for strokes Review of Systems General: Reports: 10 or more systems reviewed and unremarkable except in HPI below Vitals/I&O/Wt Last Vital Signs Temp 98.2 F 08/06/24 11:31 Pulse 61 08/06/24 11:31 Resp 15 08/06/24 11:31 BP 123/67 08/06/24 11:31 Pulse Ox 95 08/06/24 11:31 O2 Del Method Room Air 08/06/24 07:22 08/05/24 08/06/24 08/06/24 22:59 06:59 14:59 Intake Total 835 / 1315 400 / 400 Balance 835 / 1165 400 / 400 Weight last 48 hrs Weight 288 lb 8 oz Weight 286 lb 9.615 oz Weight 281 lb 8.485 oz Weight 300 lb Weight 270 lb Physical Exam Narrative: The patient is alert and oriented x 3. Speech revealed some mild dysarthria. Patient follows commands. Pupils 4 mm round reactive light and accommodation. Extraocular movements intact. There were no nystagmus during extraocular movement testing. Cranial nerves II through XII were intact without obvious facial weakness. Visual howell appear to be full via confrontation. Motor testing 5/5 bilaterally. There was no drift. Deep tendon reflexes trace to 1+ bilaterally. Plantar responses flexor bilaterally. There was no clonus. Sensory examination was intact to touch. There was no extinction on double sensory stimulation. Plantar responses flexor bilaterally. Throat clear. Lungs clear. Heart regular rhythm and rate. Extremities were negative for cyanosis. Data 08/06/24 04:35 08/05/24 16:27 A&P Assessment and plan (1) CVA (cerebral vascular accident): Impression: 1. Acute onset of objective vertigo at 1 PM on 08/04/2024 associated with nausea and vomiting and reported slurred speech with right lower facial drooping and decreased level conscious. In the emergency room at [facility] room #14 the patient reported objective vertigo with intermittent nausea and vomiting. Clinical examination revealed nystagmus on upward gaze and right lateral gaze but no obvious facial weakness and mild slurred speech. The patient's symptoms improved in the emergency room. But, since the possibility of posterior circulation stroke could not be excluded, the patient and patient's family initially refused to sign the consent for intravenous thrombolytics but later gave consent for intravenous thrombolytics (tenecteplase). I was contacted by the [facility] emergency department physician, Misti Malin MD. regarding the patient and the patient's family decision for the patient to receive intravenous thrombolytics (tenecteplase), nystagmus and objective vertigo, nausea and vomiting resolved since administration of intravenous tenecteplase 08/04/2024 with NIH score = 0 on 08/05/2024. 2. Right ear wax impaction and complaints of right ear discomfort Plan: 1. Patient stable from neurological standpoint for discharge planning. 2. Antiplatelets per NIH stroke protocol 3. Note: Patient's reported allergies to statins 4. Recommend ENT evaluation for right ear wax impaction and right ear discomfort and vertigo 5. Have patient follow-up with cardiology regarding nuclear medicine stress test and cardiac event monitoring performed July 2024. Attestations Medical Necessity Statement*: The patient was evaluated by neurology for posterior circulation stroke symptoms and status post intravenous tenecteplase Coding Level of Care Code Acute Code for Chg Fwd Diagnoses CVA (cerebral vascular accident) I63.9
--- NOTE | 2024-08-07 17:57 | PC.NURSE ---
recieved message from neurology clinic that patients follow up appointment was scheduled for December 03 2024. [employer] called the clinic to discuss the 2 week referral and was informed they would see what they could do and would call the patient to let them know.
== END 2024-08-06 11:35 | disposition home or self-care (01) | DRG 62 ==
LOC: ER 15:58 → ICU 16:04 → MEDSURG 08-05 16:38
PROVIDERS: Admitting Provider Family Medicine; Emergency Provider Emergency Medicine; Visit Provider Family Medicine
DX: I63.539 Cerebral infarction due to unspecified occlusion or stenosis of unspecified posterior cerebral artery (principal); I50.32 Chronic diastolic (congestive) heart failure; Z68.41 Body mass index [BMI] 40.0-44.9, adult; R29.810 Facial weakness; R47.1 Dysarthria and anarthria; E66.9 Obesity, unspecified; I34.0 Nonrheumatic mitral (valve) insufficiency; I11.0 Hypertensive heart disease with heart failure; E11.65 Type 2 diabetes mellitus with hyperglycemia; E11.40 Type 2 diabetes mellitus with diabetic neuropathy, unspecified; K21.9 Gastro-esophageal reflux disease without esophagitis; I25.10 Atherosclerotic heart disease of native coronary artery without angina pectoris; N52.9 Male erectile dysfunction, unspecified; E78.1 Pure hyperglyceridemia; R42 Dizziness and giddiness; H61.21 Impacted cerumen, right ear; Z79.82 Long term (current) use of aspirin
CPT/HCPCS: 36415; 36416; 70450; 70496; 70498; 80048; 80053; 80061; 80306; 80307; 81001; 82962; 83036; 83690; 83721; 85025; 85384; 85610; 85730; 92523; 92610; 93005; 93306; 96372; 96374; 96376; 97161; 97165; J1650; J2405; J2470; J3101; J7030; J8597

== ENCOUNTER → 2024-08-20 08:00 | Outpatient (BNVA) | payer MEDICARE, OTHER, SELFPAY | PROVIDERS: Visit Provider Nurse Practitioner Family | DX: I10 Essential (primary) hypertension (principal); I49.9 Cardiac arrhythmia, unspecified; I25.10 Atherosclerotic heart disease of native coronary artery without angina pectoris; Z86.73 Personal history of transient ischemic attack (TIA), and cerebral infarction without residual deficits | CPT/HCPCS: 99214 ==

== ENCOUNTER 2024-08-21 08:59 | Outpatient (CLI) | payer MEDICARE, OTHER, SELFPAY ==
--- NOTE | 2024-08-21 09:00 | XACV_ITS ---
Ht: 178 cm Wt: 120 kg BSA: 2.49 m2 Gender: Male : 1945 Any Known Allergies: Other Exam Priority: Routine Procedure(s): Procedure Description: Diagnostic procedure Procedure Description: Left Heart Catheterization Procedure Description: Coronary Angiography Diagnostic Cath Status: Elective Diagnostic Findings * INDICATION: CCS 2-3 angina/ Abnormal stress test. * No significant disease noted in the Left Main, Left Anterior Descending, Right, or Circumflex coronary arteries. * Coronary angiography shows left dominance. Conclusions 1. No significant disease noted in the Left Main, Left Anterior Descending, Right, or Circumflex coronary arteries. Recommendations * Aggressive medical therapy and risk factor control. * Outpatient cardiology follow up in 2 weeks. Interventional RX Recommendation: medical therapy and/or counseling Diagnostic RX Recommendation: medical therapy and/or counseling Anticoagulation: Heparin Pressures Phase:Rest AO : / ( 0 ) @ 10:38:00 AM 188 / 52 ( 118 ) @ 10:39:00 AM 126 / 61 ( 85 ) @ 10:50:00 AM 126 / 62 ( 85 ) @ 10:50:00 AM LV : 4 / -1 / -4 @ 10:49:00 AM 142 / -4 / 12 @ 10:50:00 AM 139 / -5 / 11 @ 10:50:00 AM Valves Phase:DefaultPhase AV : 14.0 @ 10:57:42 AM AV Mean Gradient: 11.0 @ 10:57:42 AM Clinical Evaluation EBL: 5mL-10mL Procedural Details Procedure Consent Obtained. Admit Source: Out Patient. Current Diagnosis : Stable angina. [facility] Clinical Fraility Score: 4: Vulnerable. Flatwork Catcher Indications: Stable angina; ABNORMAL STRESS TEST. Chest Pain Symptom Assessment: Typical Angina Symptoms. Cardiovascular Instability: No. Pre-Procedure Time Out. Identified patient by full name and date of as verbalized by the patient/guarantor. Does the consent match the physician's order: Yes. Accurate & Complete Informed Consent: Yes. Inpatient/Outpatient History & Physical on Chart: Yes. If H&P is completed, is and addenduem needed: No; If yes, is the addendum complete: N/A. Visualize and Verify Site with Patient/Guarantor: N/A. Relevant Radiology Images available: N/A. The risks, benefits, and alternatives of sedation and/or procedure were discussed by physician. The patient agrees to continue. Procedure started. Correct patient, site and procedure confirmed by cath team. Current diagnosis: Stable angina; Abnormal stress test. PERRLA. Strong, equal hand firer electric locomotive bilaterally. Lungs clear x 5 lobes. IV Site on Arrival: 20 gauge in the right anticubital. IV Fluids: 0.9% NaCl at KVO. 0 mL infused prior to cork slabs sawyer. Pre Procedural Pulses: bilateral radial was 3+. Pre Procedural Pulses: bilateral posterior tibial was 1+. Pre Procedural Pulses: bilateral dorsalis pedis was 2+. Oxygen started at 3liters/min via nasal canula. right groin was prepped with chloroprep then draped in the usual sterile fashion. right radial was prepped with chloroprep then draped in the usual sterile fashion. Physician notified. Baseline sample Acquired. HR: 66 BPM. Family updated by md prior to the start of the procedure. Physician arrived. Physician scrubbed in. Immediate Pre-Procedure Time Out. Correct Patient: Yes; Correct Procedure: Yes; Correct Site: Yes; Correct Patient Position: Yes; Correct Supplies: Yes; Dried Flammable Prep: Yes; Blood Products Available: N/A;. K+ 3.2; Creatnine 1.3 was reported. Fluid bolus as ordered. 40 MEQ K RIDER infusing at 10 meq/hr. Lidocaine 1% infiltrated to the right radial. Arterial access obtained. Bolus completed. IV set at 100 ml/hr of 0.9% NS. A 5 american TIG catheter in over wire. Unable to cannulate. TIG catheter out over the wire. A 5 american JL3.5 catheter in over wire. Multiple views taken of left coronary artery. Catheter removed over the exchange wire. A 5 american JR4 catheter in over wire. Multiple views taken of right coronary artery. Catheter dropped into LV over the wire. EDP Sample taken: LV 142/-5,12; HR: 70 BPM; SpO2: 97%. Pullback taken: LV 139/-6,11; AO 126/61(85); Mean: 11mmHg, Peak to Peak: 14mmHg, SEP: 17sec/min; HR: 67 BPM; SpO2: 97%. Catheter removed over the exchange wire. Physician review of films. Physician scrubbed out. Post op diagnosis: Non obstuctive CAD. A TR Band was successful obtaining hemostatsis at the Right Radial artery insertion site. TR band placed. Hemostasis obtained. Post Procedure: Pulses reassessed and unchanged. PERRLA. Strong, equal hand firer electric locomotive bilaterally. No VTE prophylaxis required. Medication waste Lidocaine- 18 ml Nitro- 49.8 mg Heparin- 1000 units Fentanyl- 50 mcg. Total IV fluids: 281 mL. Fluoro: 5:03. Contrast type used: Visipaque 320 mgI/mL, 100 mL bottle. [id number]. Complications: None. Estimated blood loss: 5mL-10mL. Responsiveness - Normal response to verbal stimuli; alert and oriented, PERRLA. Airway - Unaffected, no intervention required; spontaneous ventilation. Circulation: W/N/L, pulses unchanged. Nausea/Vomiting: No. Procedure completed. Patient transferred by wheelchair to 1st floor. Vital chart was stopped. Access Site Site: Right Radial artery Sheath Size: 6 Fr Hemostasis Method: TR Band Hemostasis Success: Successful Procedure Medications Start: 10:17 AM Stop: 10:17 AM Medication: 0.9% Saline Amount: 250 ml Route: I.V. bolus Start: 10:28 AM Stop: 10:28 AM Medication: Versed Amount: 1 mg Route: I.V. Start: 10:28 AM Stop: 10:28 AM Medication: Fentanyl Amount: 50 mcg Route: I.V. Start: 10:36 AM Stop: 10:36 AM Medication: Versed Amount: 1 mg Route: I.V. Start: 10:37 AM Stop: 10:37 AM Medication: Nitrogylcerin Amount: 200 mcg Route: I.A. Start: 10:37 AM Stop: 10:37 AM Medication: Heparin Amount: 5000 units Route: I.V. I, the attending physician, have reviewed and verified all procedure medications. Yes, all medications given per verbal order History/Risk Factors Hypertension: Yes Dyslipidemia: Yes Peripheral Arterial Disease (PAD): No Myocardial Infarction (FL): No Obesity: No Renal Disease: No Tobacco Use: Never Prior Interventions PCI: No CABG: No Valve Surgery: No Report Signatures Finalized by Justin Rogel MD on 08/27/2024 09:45 AM
[2024-08-21] MEDS: diphenhydrAMINE 50 mg Capsule PO (09:15)
[2024-08-21 09:37] VITALS: BP 169/77; PULSE 77; RESP 16; TEMP 36.7; O2SAT 96; BMI 38.0
[2024-08-21 09:38] LABS: Basophils # 0.1 10^3/uL (0.0-0.1); Basophils % 1.2 %; Eosinophils # 0.2 10^3/uL (0.0-0.8); Eosinophils % 1.8 %; Lymphocytes # 3.2 10^3/uL (0.8-4.8); Lymphocytes % 35.3 %; Mean Corpuscular Hemoglobin 32.7 pg (27-33); Mean Corpuscular Volume 93.3 fl (82-101); Mean Platelet Volume 9.4 fL (7.4-10.4); Monocytes # 0.8 10^3/uL (0.2-0.9); Monocytes % 8.6 %; Neutrophils # 4.77 10^3/uL (1.8-7.7); Neutrophils % 52.8 %; Nucleated Red Blood Cells % 0 %; Platelet Count 242 10^3/cmm (157-399); Red Cell Distribution Width 13.2 % (12.1-15.1); White Blood Count 9.04 10^3/uL (3.29-11.43)
[2024-08-21 09:53] LABS: Anion Gap 19.2 (5-19); Blood Urea Nitrogen 27 mg/dL (8-23); Calcium 8.6 mg/dL (8.5-10.5); Carbon Dioxide 22 mmol/L (22-29); Chloride 103 mmol/L (98-107); Creatinine Clr Calc Pharmacy 61.8428; Glucose 152 mg/dL (65-115); Osmolality Calculated 300 mOsm/kg (285-295); Potassium 3.2 mmol/L (3.5-5.1); Sodium 141 mmol/L (136-145)
[2024-08-21] MEDS: potassium chloride ER 20 mEq Tablet 40 MEQ PO (10:10)
--- NOTE | 2024-08-21 10:12 | W.PM.OPSUD ---
Surgery/Procedure H&P Update DATE OF PROCEDURE: August 21, 2024 DATE H&P PERFORMED: 08/20/24 H&P UPDATE INFORMATION: I have reviewed H&P completed within last 30 days, I have examined patient prior to procedure and Changes to prior documentation as noted here CHANGES TO PREVIOUS DOCUMENTATION: Patient has been having on and off chest discomfort symptoms. Had stress test that was abnormal. Plan for coronary angiogram. Patient did have possible posterior circulation stroke earlier this month. Currently asymptomatic from neurological standpoint. PREOP DIAGNOSIS: CCS class 2/3 angina/ Abnormal stress test PRIMARY INDICATION FOR PROCEDURE: CCS class 2-3 angina/ Abnormal stress test PLANNED PROCEDURE: Operation Date: 08/21/24 10:00 Proposed Procedures p Cardiac Catheterization - [facility] w/wo LV & Coros(Left) - Justin Rogel M.D Possible percutaneous coronary intervention PATIENT REASSESSED PRIOR TO SEDATION, WITH NO CHANGE NOTED: Yes PHYSICAL EXAM: alert, oriented x 3, clear to auscultation bilaterally and regular rate & rhythm AIRWAY EVAL/ANESTHESIA PLAN: normal airway, ASA III, Local Anesthesia, Risks, benefits & alternatives of sedation and/or procedure discussed and Patient agrees to continue as planned ADDITIONAL INFORMATION: Moderate sedation
--- NOTE | 2024-08-21 11:25 | PC.NURSE ---
Patient transferred to CSU from tutorial laboratory supervisor with a right radial TR_band, NS at 75ml/hr, and a K rider hanging.
[2024-08-21 12:37] VITALS: BP 106/62; PULSE 60; RESP 16; O2SAT 96
--- NOTE | 2024-08-21 16:06 | PC.NURSE ---
Patient presents from blood bank laboratory technician with a right radial TR-band. Air is removed slowly 2ml's at a time. TR-band is removed when all the air is removed. A dressing of 2x2 and tegaderm is applied. Patient tolerated well. Patient reeducated to not use his hand/wrist for 24 hours.
[2024-08-21 16:18] VITALS: BP 128/67; PULSE 59; RESP 20; O2SAT 93
--- NOTE | 2024-08-21 16:32 | PC.NURSE ---
Discharge is pending until 1699, waiting for patients daughter to come for his ride home.
--- NOTE | 2024-08-21 17:53 | PC.NURSE ---
Patient was discharged to home with family via a wheelchair to private car. Patient was educated on discharge paperwork, he states understanding.
== END 2024-08-21 17:10 | disposition home or self-care (01) ==
LOC: CCL 09:03 → CSU 11:09
PROVIDERS: Visit Provider Internal Medicine
DX: R94.39 Abnormal result of other cardiovascular function study (principal); R07.89 Other chest pain; I12.9 Hypertensive chronic kidney disease with stage 1 through stage 4 chronic kidney disease, or unspecified chronic kidney disease; N17.9 Acute kidney failure, unspecified; E78.5 Hyperlipidemia, unspecified; E66.9 Obesity, unspecified; I25.10 Atherosclerotic heart disease of native coronary artery without angina pectoris
CPT/HCPCS: 36415; 80048; 85025; 93458; 96365; 96374; 99152; C1769; C1887; C1894; J1644; J2250; J3010; J3480; J3490; J7030; Q0163; Q9967

== ENCOUNTER → 2024-08-28 14:51 | Outpatient (BNVA) | payer MEDICARE, OTHER, SELFPAY | PROVIDERS: Visit Provider Nurse Practitioner Family | DX: N17.9 Acute kidney failure, unspecified (principal) | CPT/HCPCS: 36415; 80048 ==

== ENCOUNTER → 2024-10-01 10:36 | Outpatient (BNVA) | payer MEDICARE, OTHER, SELFPAY | PROVIDERS: Visit Provider Nurse Practitioner Family | DX: R00.2 Palpitations (principal) | CPT/HCPCS: 99213 ==

== ENCOUNTER → 2024-12-05 11:28 | Outpatient (BNVA) | payer MEDICARE, OTHER, SELFPAY | PROVIDERS: Visit Provider Nurse Practitioner Family | DX: I50.9 Heart failure, unspecified (principal); I10 Essential (primary) hypertension | CPT/HCPCS: 36415; 80048; 83880; 99214 ==

== ENCOUNTER → 2025-01-15 13:41 | Outpatient (BNVA) | payer MEDICARE, OTHER, SELFPAY | PROVIDERS: PCP Family Medicine; Visit Provider Nurse Practitioner Family | DX: D22.5 Melanocytic nevi of trunk (principal); L57.8 Other skin changes due to chronic exposure to nonionizing radiation; L81.4 Other melanin hyperpigmentation; B00.1 Herpesviral vesicular dermatitis; Z08 Encounter for follow-up examination after completed treatment for malignant neoplasm; Z85.828 Personal history of other malignant neoplasm of skin; D48.5 Neoplasm of uncertain behavior of skin | CPT/HCPCS: 54100; 99214 ==

== ENCOUNTER 2025-01-21 09:07 | Outpatient (CLI) | payer MEDICARE, OTHER, SELFPAY ==
--- NOTE | 2025-01-21 09:12 | USR_ITS ---
PROCEDURE INFORMATION: Exam: US Duplex Lower Extremity Veins, Bilateral Exam date and time: 01/21/2025 9:24 AM Age: 79 years old Clinical indication: Screening exam; Evaluation for reflux; Additional info: Lower extremity swelling/heart failure TECHNIQUE: Imaging protocol: Real-time duplex ultrasound of the bilateral extremities with 2-D cohn scale, color Doppler flow and spectral waveform analysis including responses to compression and other maneuvers (when performed) with image documentation. Complete exam focused on the lower extremity veins. COMPARISON: No relevant prior studies available. FINDINGS: Right deep veins: Unremarkable. The common femoral, femoral, proximal profunda femoral and popliteal veins are patent without thrombus. Normal Doppler waveforms. Normal compressibility and/or augmentation response. Left deep veins: Unremarkable. The common femoral, femoral, proximal profunda femoral and popliteal veins are patent without thrombus. Normal Doppler waveforms. Normal compressibility and/or augmentation response. Superficial veins: Greater saphenous veins at the saphenofemoral junctions are patent bilaterally without thrombus. Soft tissues: Unremarkable. Reflux into the right common femoral vein for 0.57 seconds, right femoral vein 1.5 seconds, left common femoral vein 0.96 seconds, left superficial femoral junction 0.56 seconds. US/CV miguelito dup insubon [facility] [id number] IMPRESSION: No evidence of deep vein thrombosis.
== END 2025-01-21 09:08 | disposition home or self-care (01) ==
PROVIDERS: PCP Family Medicine; Visit Provider Nurse Practitioner Family
DX: M79.89 Other specified soft tissue disorders (principal)
CPT/HCPCS: 93970

== ENCOUNTER 2025-02-07 11:12 | Outpatient (CLI) | payer MEDICARE, OTHER, SELFPAY ==
[2025-02-07 12:54] LABS: Blood Urea Nitrogen 13 mg/dL (8-23); Calcium 8.8 mg/dL (8.5-10.5); Carbon Dioxide 24 mmol/L (22-29); Chloride 104 mmol/L (98-107); Glucose 116 mg/dL (65-115); Osmolality Calculated 291 mOsm/kg (285-295); Sodium 140 mmol/L (136-145)
[2025-02-07 13:01] LABS: Anion Gap 15.8 (5-19); Potassium 3.8 mmol/L (3.5-5.1)
== END 2025-02-07 11:13 | disposition home or self-care (01) ==
LOC: LAB 11:14
PROVIDERS: Nurse Practitioner Family; PCP Family Medicine; Visit Provider Internal Medicine Cardiovascular Disease
DX: I50.9 Heart failure, unspecified (principal); R06.02 Shortness of breath
CPT/HCPCS: 80048

== ENCOUNTER → 2025-02-27 15:45 | Outpatient (BNVA) | payer MEDICARE, OTHER, SELFPAY | PROVIDERS: PCP Family Medicine; Visit Provider Nurse Practitioner Family | DX: S30.93XA Unspecified superficial injury of penis, initial encounter (principal); X58.XXXA Exposure to other specified factors, initial encounter; L57.8 Other skin changes due to chronic exposure to nonionizing radiation; L81.4 Other melanin hyperpigmentation; D22.5 Melanocytic nevi of trunk; Z08 Encounter for follow-up examination after completed treatment for malignant neoplasm; Z85.828 Personal history of other malignant neoplasm of skin | CPT/HCPCS: 99213 ==

== ENCOUNTER 2025-03-05 10:30 | Emergency (ER) | payer MEDICARE, OTHER, SELFPAY ==
[2025-03-05] VITALS (7 sets, daily range): BP systolic 115–174; BP diastolic 67–138; PULSE 57–68; RESP 16–19; TEMP 36.7; O2SAT 92–98
--- NOTE | 2025-03-05 10:48 | ECG_ITS ---
[facility]25[facility]05 Pat Name: Teddy Gayle Department: Room: Gender: Male Presiding Judge: : 1945 Requested By: Davida Romo Order Number: [id number] Reading MD: DAVID FAYE Measurements Intervals [place] Rate: 68 P: 47 NC: 163 QRS: 19 QRSD: 95 T: 77 QT: 404 QTc: 432 Interpretive Statements SINUS RHYTHM WITH FREQUENT VENTRICULAR PREMATURE COMPLEXES ABNORMAL RHYTHM ECG Compared to ECG 08/04/2024 01:23:51 Ventricular premature complex(es) now present Electronically Signed On 03-05-2025 22:51:33 CDT by DAVID FAYE [id number]
--- NOTE | 2025-03-05 10:48 | XR_ITS ---
WS: [id number] XR chest 1V portable [id number] REASON FOR EXAM: chest pain FINDINGS: Chest is unchanged compared to 09/13/2020. Mild tortuosity and ectasia of the thoracic aorta. Widening of the upper mediastinum unchanged, secondary to tortuous great vessel origins. Heart size at the upper limits of normal. Calcified granulomatous disease bilaterally. No acute pulmonary parenchymal or pleural abnormality. XR/XR chest 1V portable [id number] IMPRESSION: Stable chest without acute abnormality.
--- NOTE | 2025-03-05 10:51 | W.ED.CHESTPA ---
HPI - Chest Pain General: Chief Complaint: Chest Pain Stated Complaint: chest pressure, dizzy, tingling in L aarm Time Seen by Provider: 03/05/25 10:46 History of Present Illness: 79-year-old male with a history of obesity and hypertension who presents emergency room with chest pain. States has been having palpitations that been getting worse for about a week. He will have a sharp pain when he has those. He also reports a pain in his left neck and in between his shoulder blades its dull and achy. This all became worse this morning and so he came to the emergency room. No lower extremity swelling. No cough. No abdominal pain. No nausea or vomiting. No altered mental status. No fevers. He does report that he has been feeling lightheaded. Related Data Home Medications ?Medication ?Instructions ?Recorded ?Confirmed coenzyme Q10 30 mg capsule 30 mg PO DAILY 12/22/23 03/05/25 vitamin B complex 1 tab PO DAILY 12/22/23 03/05/25 mupirocin 2 % topical ointment See Rx Instructions .Route .COMPLEX 03/05/25 03/05/25 potassium chloride 20 mEq 20 meq PO QAM 03/05/25 03/05/25 tablet,extended release Previous Rx's ?Medication ?Instructions ?Recorded lisinopril 20 1 tab PO DAILY #180 tabs 08/20/24 mg-hydrochlorothiazide 25 mg tablet nebivolol 20 mg tablet 40 mg (2 x 20 mg) PO DAILY #180 08/20/24 tabs magnesium L-lactate 84 mg 84 mg PO DAILY #90 tabs 08/28/24 tablet,extended release furosemide 40 mg tablet 40 mg PO BID #180 tabs 12/27/24 potassium chloride 10 mEq See Rx Instructions .Route 02/04/25 tablet,extended release .COMPLEX #30 tabs pantoprazole 40 mg tablet,delayed 40 mg PO DAILY #90 tabs 03/05/25 release Allergies Allergy/AdvReac Type Severity Reaction Status Date / Time atorvastatin AdvReac Severe ALGY-Joint Verified 12/27/24 12:40 Pain Calcium Channel Blocking AdvReac Mild unknown Verified 12/27/24 12:40 Agent Dilt ciprofloxacin (From Cipro) AdvReac Mild unknown Verified 12/27/24 12:40 gabapentin AdvReac Mild HR dropped Verified 12/27/24 12:40 <40 bpm metformin AdvReac Mild unknown Verified 12/27/24 12:40 fenofibrate AdvReac irregular Verified 12/27/24 12:40 heart rate PRAVASTATIN Allergy Intermediate SWELLING Uncoded 12/27/24 12:40 Jardiance Allergy Mild muscle pain Uncoded 12/27/24 12:40 Review of Systems Narrative: Constitutional symptoms: Negative except as documented in HPI. Skin symptoms: Negative except as documented in HPI. Eye symptoms: Negative except as documented in HPI. ENMT symptoms: Negative except as documented in HPI. Respiratory symptoms: Negative except as documented in HPI. Cardiovascular symptoms: Negative except as documented in HPI. Gastrointestinal symptoms: Negative except as documented in HPI. Genitourinary symptoms: Negative except as documented in HPI. Musculoskeletal symptoms: Negative except as documented in HPI. Neurologic symptoms: Negative except as documented in HPI. Psychiatric symptoms: Negative except as documented in HPI. Endocrine symptoms: Negative except as documented in HPI. 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 Skin: Warm, dry. Head: Normocephalic, atraumatic. Neck: Supple, trachea midline. Eye: Extraocular movements are intact. Ears, nose, mouth and throat: mucosa moist. Cardiovascular: Regular, Normal peripheral perfusion. Respiratory: Lungs are clear to auscultation, respirations are non-labored, breath sounds are equal, Symmetrical chest wall expansion. Gastrointestinal: Soft, Nontender, Non distended Musculoskeletal: Normal ROM, no deformity. Neurological: Alert and oriented, No focal neurological deficit observed. Psychiatric: Cooperative, appropriate mood & affect. Course Vital Signs: Vital signs: Vital Signs Temperature 98.1 F 03/05/25 10:44 Pulse Rate 57 L 03/05/25 13:47 Respiratory Rate 19 H 03/05/25 13:47 Blood Pressure 132/71 03/05/25 13:47 Pulse Oximetry 93 03/05/25 13:47 Oxygen Delivery Me thod Room Air 03/05/25 12:25 MDM - Chest Pain Medical Decision Making Differential diagnosis for patient with chest pain includes but is not limited to and based on the above HPI, review of systems and physical exam: Pneumonia. unstable angina. angina. Acute coronary syndrome / ID. Pulmonary embolism. Costochondritis / musculoskeletal. Pleurisy. Pericarditis. Esophageal spasm. Pancreatis. Cholecystitis. Orders placed to evaluate differential diagnosis based on the above differential, HPI and physical exam EKG: Time 1045. Rate 68. Normal sinus rhythm, No ST-T changes, PVCs, normal TX & QRS intervals, This was reviewed and interpreted by myself the ER physician at 10:45 AM. Chest x-ray: No acute process. No infiltrate. No pneumothorax. This was reviewed and interpreted by myself the emergency room physician. I also reviewed the radiology report. Repeat EKG: Time 1310. Rate 56. Sinus bradycardia, No ST-T changes, no ectopy, normal TX & QRS intervals, This was reviewed and interpreted by myself the ER physician at 1315. Rate has decreased to 56. No longer having any PVCs. Lab Review: Laboratory results were reviewed and interpreted by myself the emergency room physician. No leukocytosis. No anemia. Renal function is slightly elevated over his baseline at 24 and 1.1. Potassium slightly low at 3.4. TSH is normal. Initial troponin is negative at 10. Lactate is mildly elevated at 2.3. Repeat troponin is negative as well. I reviewed the patient's medical record. Reexamination: Patient remained stable. No increased work of breathing. No altered mental status. No focal motor deficits. I spoke at length with the patient. He had a negative heart cath a few months back and has had several negative heart caths in the past. He says he has always had PVCs but they have not always hurt like this. He agrees to follow with his PCP in the next few days. Assessment and plan: PVCs Noncardiac chest pain - Discharged home - Discussed plan with patient. Answered any questions. - Evaluation and treatment of this problem were appropriate in the emergency setting. Lab Data 03/05/25 11:01 03/05/25 11:01 Radiology Impressions Chest X-Ray 03/05/25 10:48 IMPRESSION: Stable chest without acute abnormality. Laboratory Results WBC 8.27 10^3/uL (3.29-11.43) 03/05/25 11:01 RBC 4.40 10^6/uL (3.85-5.65) 03/05/25 11:01 Hgb 14.30 g/dL (11.27-16.99) 03/05/25 11:01 Hct 41.6 % (37-53) 03/05/25 11:01 MCV 94.5 fl (82-101) 03/05/25 11:01 MCH 32.5 pg (27-33) 03/05/25 11:01 MCHC 34.4 g/dL (30-55) 03/05/25 11:01 RDW 13.2 % (12.1-15.1) 03/05/25 11:01 Plt Count 220 10^3/cmm (157-399) 03/05/25 11:01 MPV 9.9 fL (7.4-10.4) 03/05/25 11:01 Neut % (Auto) 50.6 % 03/05/25 11:01 Lymph % (Auto) 37.2 % 03/05/25 11:01 [place] % (Auto) 8.5 % 03/05/25 11:01 Eos % (Auto) 2.3 % 03/05/25 11:01 Baso % (Auto) 1.2 % 03/05/25 11:01 Neut # (Auto) 4.18 10^3/uL (1.8-7.7) 03/05/25 11:01 Lymph # (Auto) 3.1 10^3/uL (0.8-4.8) 03/05/25 11:01 [place] # (Auto) 0.7 10^3/uL (0.2-0.9) 03/05/25 11:01 Eos # (Auto) 0.2 10^3/uL (0.0-0.8) 03/05/25 11:01 Baso # (Auto) 0.1 10^3/uL (0.0-0.1) 03/05/25 11:01 Nucleated RBC % (auto) 0 % 03/05/25 11:01 Nucleated RBCs # 0.0 /100WBC 03/05/25 11:01 Sodium 138 mmol/L (136-145) 03/05/25 11:01 Potassium 3.4 mmol/L (3.5-5.1) L 03/05/25 11:01 Chloride 101 mmol/L (98-107) 03/05/25 11:01 Carbon Dioxide 22 mmol/L (22-29) 03/05/25 11:01 Anion Gap 18.4 (5-19) 03/05/25 11:01 BUN 24 mg/dL (8-23) H 03/05/25 11:01 Creatinine 1.1 mg/dL (0.7-1.2) 03/05/25 11:01 GFR Calculation Not Reportable 03/05/25 11:01 Glucose 125 mg/dL (65-115) H 03/05/25 11:01 Calculated Osmolality 292 mOsm/kg (285-295) 03/05/25 11:01 Lactic Acid 2.3 mmol/L (0.5-2.2) H 03/05/25 11:01 Lactic Acid (Sepsis) 2.0 mmol/L (0.5-2.2) 03/05/25 12:59 Calcium 9.4 mg/dL (8.5-10.5) 03/05/25 11:01 Magnesium 1.7 mg/dL (1.7-2.3) 03/05/25 11:01 Total Bilirubin 0.5 mg/dL (0.15-1.2) 03/05/25 11:01 AST 17 U/L (0-40) 03/05/25 11:01 ALT 18 U/L (0-41) 03/05/25 11:01 Alkaline Phosphatase 67 U/L (40-130) 03/05/25 11:01 Troponin T Baseline 10 ng/L (0-15) 03/05/25 11:01 Troponin T 120 Minute 9.44 ng/L (0-15) 03/05/25 12:59 Delta Troponin T -0.56 ABS# (0-10) L 03/05/25 12:59 NT-Pro-B Natriuret Pep 88 pg/mL (0-450) 03/05/25 11:01 Total Protein 7.4 g/dL (6.6-8.7) 03/05/25 11:01 Albumin 4.2 g/dL (3.5-5.2) 03/05/25 11:01 Globulin 3.2 g/dL (1.3-4.6) 03/05/25 11:01 TSH 1.81 uIU/mL (0.27-4.20) 03/05/25 11:01 Urine Color Yellow (Yellow) 03/05/25 12:23 Urine Appearance Clear (CLEAR) 03/05/25 12:23 Urine pH 6.0 (5-7) 03/05/25 12:23 Ur Specific [place] 1.009 (1.005-1.030) 03/05/25 12:23 Urine Protein Negative (Negative) 03/05/25 12:23 Urine Glucose (UA) Negative (Normal) 03/05/25 12:23 Urine Ketones Negative (Negative) 03/05/25 12:23 Urine Blood Negative (Negative) 03/05/25 12:23 Urine Nitrate Negative (Negative) 03/05/25 12:23 Urine Bilirubin Negative (Negative) 03/05/25 12:23 Urine Urobilinogen 0.2 mg/dL (Negative) 03/05/25 12:23 Ur Leukocyte Esterase Negative (Negative) 03/05/25 12:23 Urine RBC 0-2 /hpf (0-2) 03/05/25 12:23 Urine WBC 0-5 /hpf (0-5) 03/05/25 12:23 Ur Squamous Epith Cells 0-5 /hpf (0-5) 03/05/25 12:23 Amorphous Sediment Not Reportable 03/05/25 12:23 Urine Bacteria None seen /hpf (NONE) 03/05/25 12:23 Hyaline Casts 0.40 /lpf 03/05/25 12:23 All radiology interpretation(s) finalized by discharge Discharge Plan Discharge Patient Disposition: Home Clinical Impression: Palpitations, Non-cardiac chest pain, Frequent PVCs Condition: Stable Prescriptions: No Action lisinopril-hydrochlorothiazide 20-25 mg tablet 1 tab PO DAILY Qty: 180 3RF nebivolol 20 mg tablet 40 mg PO DAILY Qty: 180 2RF magnesium L-lactate 84 mg tablet extended release 84 mg PO DAILY Qty: 90 3RF furosemide 40 mg tablet 40 mg PO BID Qty: 180 0RF Rx Instructions: Only take 1 tablet as needed weight gain of 3 pounds in a day or 5 pounds in 1 week. If you take 1 pill, take an extra two 10 meq potassium with it potassium chloride 10 mEq tablet extended release See Rx Instructions .ROUTE .COMPLEX Qty: 30 0RF Dose Instruction: TAKE 1 TABLET BY MOUTH ONCE DAILY IN THE EVENING Rx Instructions: TAKE 1 TABLET BY MOUTH ONCE DAILY IN THE EVENING pantoprazole 40 mg tablet,delayed release (DR/EC) 40 mg PO DAILY Qty: 90 1RF vitamin B complex Tablet 1 tab PO DAILY coenzyme Q10 30 mg Capsule 30 mg PO DAILY mupirocin 2 % ointment See Rx Instructions .ROUTE .COMPLEX Rx Instructions: APPLY OINTMENT TOPICALLY TO AFFECTED AREA OF GROIN TWICE DAILY. potassium chloride 20 mEq tablet extended release 20 meq PO QAM Discharge Orders: Discharge ED (Routine); Ordered 03/05/25 Ordered By: Davida Gilbert Referrals: Lorrie Amaya DO [Primary Care Provider, Family Practice] Discharge Diet: As Directed Discharge Activity: Increase activity as tolerated Patient Instructions: Heart Palpitations (ED), Opioid Safety, Pain Management Activity Restrictions/Additional Instructions: Thank you for choosing [facility] for your healthcare needs today. You have been screened and evaluated and felt safe for discharge. Health conditions do change or evolve sometimes and as such it is important that you follow up with your Primary Doctor to be re checked, 3-5 days is a general good time frame for follow up. You are always welcome to return to the ED for re assessment if your symptoms are worsening or you have new concerns Print Language: Ivorian Coding Level of Care Code ED Stone Repairer for Pee Mendez
[2025-03-05] MEDS: aspirin 81 mg Chew Tablet 324 MG PO (11:05)
[2025-03-05 11:09] LABS: Basophils # 0.1 10^3/uL (0.0-0.1); Basophils % 1.2 %; Eosinophils # 0.2 10^3/uL (0.0-0.8); Eosinophils % 2.3 %; Hematocrit 41.6 % (37-53); Lymphocytes # 3.1 10^3/uL (0.8-4.8); Lymphocytes % 37.2 %; Mean Corpuscular HGB Conc 34.4 g/dL (30-55); Mean Corpuscular Hemoglobin 32.5 pg (27-33); Mean Corpuscular Volume 94.5 fl (82-101); Mean Platelet Volume 9.9 fL (7.4-10.4); Monocytes # 0.7 10^3/uL (0.2-0.9); Monocytes % 8.5 %; Neutrophils # 4.18 10^3/uL (1.8-7.7); Neutrophils % 50.6 %; Nucleated Red Blood Cells % 0 %; Platelet Count 220 10^3/cmm (157-399); Red Cell Distribution Width 13.2 % (12.1-15.1); White Blood Count 8.27 10^3/uL (3.29-11.43)
[2025-03-05 11:25] LABS: Lactic Sepsis W/Reflex 2.3 mmol/L (0.5-2.2)
[2025-03-05 11:26] LABS: Troponin(5th) Baseline 10 ng/L (0-15)
[2025-03-05 11:49] LABS: Alanine Aminotransferase 18 U/L (0-41); Albumin Level 4.2 g/dL (3.5-5.2); Alkaline Phosphatase 67 U/L (40-130); Anion Gap 18.4 (5-19); Aspartate Amino Transferase 17 U/L (0-40); Blood Urea Nitrogen 24 mg/dL (8-23); Calcium 9.4 mg/dL (8.5-10.5); Carbon Dioxide 22 mmol/L (22-29); Chloride 101 mmol/L (98-107); Creatinine Clr Calc Pharmacy 70.6335; Globulin 3.2 g/dL (1.3-4.6); Glucose 125 mg/dL (65-115); Magnesium 1.7 mg/dL (1.7-2.3); NT Pro B Type Natriuretic Pept 88 pg/mL (0-450); Osmolality Calculated 292 mOsm/kg (285-295); Potassium 3.4 mmol/L (3.5-5.1); Sodium 138 mmol/L (136-145); Thyroid Stimulating Hormone 1.81 uIU/mL (0.27-4.20); Total Bilirubin 0.5 mg/dL (0.15-1.2); Total Protein 7.4 g/dL (6.6-8.7)
[2025-03-05 12:44] LABS: Bilirubin Urine Negative (Negative); Blood Urine Negative (Negative); Glucose Urine UA Negative (Normal); Ketones Urine Negative (Negative); Leukocyte Esterase Urine Negative (Negative); Nitrate Urine Negative (Negative); Protein Urine Negative (Negative); Specific Gravity, Urine 1.009 (1.005-1.030); Urine Appearance Clear (CLEAR); Urine Color Yellow (Yellow); Urobilinogen Urine 0.2 mg/dL (Negative)
--- NOTE | 2025-03-05 12:48 | ECG_ITS ---
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
[2025-03-05 12:49] LABS: Bacteria Urine None Seen /hpf; RBC Urine 0-2 /hpf (0-2); Squamous Epithelial Cell Urine 0-5 /hpf (0-5); WBC Urine 0-5 /hpf (0-5)
[2025-03-05 12:53] LABS: Reflex Lactate Order REFLEX LACTIC ORDERD
[2025-03-05 13:03] LABS: Add Urine Culture? No
[2025-03-05 13:44] LABS: Troponin 5 2HR 9.44 ng/L (0-15)
[2025-03-05 13:49] LABS: Troponin 5 2HR Delta -0.56 ABS# (0-10)
== END 2025-03-05 14:07 | disposition home or self-care (01) ==
PROVIDERS: Emergency Provider Emergency Medicine; PCP Family Medicine
DX: R00.2 Palpitations (principal); R07.89 Other chest pain; I49.3 Ventricular premature depolarization; I10 Essential (primary) hypertension
CPT/HCPCS: 36415; 71045; 80053; 81001; 83605; 83735; 83880; 84443; 84484; 85025; 93005; 99285; J9999

== ENCOUNTER → 2025-04-25 14:07 | Outpatient (BNVA) | payer MEDICARE, OTHER, SELFPAY | PROVIDERS: PCP Family Medicine; Visit Provider Family Medicine | DX: E87.6 Hypokalemia (principal) | CPT/HCPCS: 80048 ==

== ENCOUNTER → 2025-05-29 10:06 | Outpatient (BNVA) | payer MEDICARE, OTHER, SELFPAY | PROVIDERS: PCP Family Medicine; Visit Provider Family Medicine | DX: R10.9 Unspecified abdominal pain (principal) | CPT/HCPCS: 81000 ==

== ENCOUNTER → 2025-06-09 13:14 | Outpatient (BNVA) | payer MEDICARE, OTHER, SELFPAY | PROVIDERS: PCP Family Medicine; Visit Provider Internal Medicine | DX: I51.89 Other ill-defined heart diseases (principal) | CPT/HCPCS: 99214 ==

== ENCOUNTER → 2025-08-20 14:53 | Outpatient (BNVA) | payer MEDICARE, OTHER, SELFPAY | PROVIDERS: PCP Family Medicine; Visit Provider Nurse Practitioner Family | DX: L72.0 Epidermal cyst (principal); L82.1 Other seborrheic keratosis; L57.8 Other skin changes due to chronic exposure to nonionizing radiation; L81.4 Other melanin hyperpigmentation; D22.5 Melanocytic nevi of trunk; Z08 Encounter for follow-up examination after completed treatment for malignant neoplasm; Z85.828 Personal history of other malignant neoplasm of skin; L82.0 Inflamed seborrheic keratosis; Z78.9 Other specified health status; L29.89 Other pruritus; L53.8 Other specified erythematous conditions; R20.8 Other disturbances of skin sensation; L57.0 Actinic keratosis | CPT/HCPCS: 17000; 17110; 99213 ==